=== PATIENT | female | born 1990 | race Caucasian/White ===

== ENCOUNTER → 2018-11-09 11:16 | Outpatient (CLI) | payer OTHER, SELFPAY ==
[2017-06-22 10:18] VITALS: BMI 25.6
[2018-11-09 16:35] LABS: Chlamydia Trachomatis by PCR Negative (Negative); Neisserai gonorrhoeae by PCR Negative (Negative); Probe Check PASS; Sample Adequacy Control PASS; Specimen Processing Control PASS
== END ==
PROVIDERS: Visit Provider Obstetrics & Gynecology
DX: Z11.3 Encounter for screening for infections with a predominantly sexual mode of transmission (principal)
CPT/HCPCS: 87491; 87591

== ENCOUNTER → 2018-11-24 10:58 | Outpatient (CLI) | payer OTHER, SELFPAY ==
[2018-11-24 14:28] LABS: Absolute Lymphocyte Count 0.99 X10^3/ul (0.83-4.51); Absolute Neutrophil Count 5.8 X10^3/uL (2.0-7.7); Basophil# 0.02 X10^3/uL; Basophil% 0.3 % (0-1); Eosinophil# 0.03 X10^3/uL; Eosinophils% 0.4 % (0-5); Hematocrit 39.1 % (37-47); Hemoglobin 13.2 g/dl (12.0-15.0); Lymphocyte # 0.99 X10^3/ul (4.0); Lymphocyte % 13.6 % (19-41); Mean Corp Hgb Conc 33.8 g/gl (32-36); Mean Corpuscular Hgb 30.1 pg (27.0-32.0); Mean Corpuscular Volume 89.3 fL (81-99); Mean Platelet Vol. 9.8 fl (6.2-12.0); Monocyte# 0.44 X10^3/uL; Monocyte% 6.1 % (0-10); Neutrophil # 5.78 X10^3/uL (2.7-7.7); Neutrophil % 79.5 % (47-70); POSITIVE COUNT NO; POSITIVE DIFFERENTIAL NO; POSITIVE MORPHOLOGY NO; Platelet Count 295 K/mm3 (150-450); RBC Distribution Width CV 13.9 % (11.6-14.6); RBC Distribution Width SD 44.2 fl (35.1-43.9); Red Blood Count 4.38 M/mm3 (4.2-5.4); White Blood Count 7.3 K/mm3 (4.4-11.0)
[2018-11-24 14:43] LABS: Thyroid Stim Hormone (TSH) 1.24 uIU/mL (0.358-3.74)
[2018-11-24 15:22] LABS: HIV - WCH Non-Reactive (Nonreactive); Rubella IgG 238.5 IU/mL
[2018-11-24 15:55] LABS: Color, Urine Yellow (Yellow); Glucose, Dipstick Normal (Normal); Ketone-Dipstick Negative (Negative); Leukocyte Esterase-Dipstick Negative /ul (Negative); Nitrite-Dipstick Negative (Negative); Occult Blood-Urine Negative /ul (Negative); Protein-Dipstick Negative (Negative); Urine Bilirubin Dipstick Negative (Negative); Urine Clarity Clear (Clear); Urine Urobilinogen Normal (Normal); Urine pH 6.5 (5.0 - 8.0)
[2018-11-25 11:00] LABS: HEPATITIS B SURFACE AG Negative (Negative); Hep C Antibodies <0.1 s/co ratio (0.0-0.9)
[2018-11-26 01:31] LABS: Prenatal RPR NONREACTIVE (NONREACTIVE)
== END ==
PROVIDERS: Visit Provider Obstetrics & Gynecology
DX: Z34.81 Encounter for supervision of other normal pregnancy, first trimester (principal)
CPT/HCPCS: 36415; 81002; 84443; 85025; 86703; 86762; 86803; 87340

== ENCOUNTER → 2018-12-02 09:42 | Outpatient (CLI) | payer OTHER, SELFPAY ==
--- NOTE | 2018-12-02 09:51 | US_ITS ---
STUDY: ULTRASOUND BREAST - RIGHT REASON FOR EXAM: Female, 28 years old. Palpable lump in the right breast. TECHNIQUE: Axial and longitudinal images of the RIGHT breast were performed with a high resolution ultrasound transducer. COMPARISON: None. FINDINGS: RIGHT Breast: The lateral half of the right breast was examined by ultrasound. There is homogeneous fibroglandular tissue. No solid or cystic mass lesion is seen. US/Breast Limited Unilateral IMPRESSION: Unremarkable sonographic examination of the lateral aspect of the right breast. ASSESSMENT CATEGORY: BIRADS Category 1: Negative. A letter regarding these results will be sent to the patient by the facility within 30 days. Electronically Signed: Chato Liriano, at 13:01 EDT , Service support ,
== END ==
PROVIDERS: Referring Provider Obstetrics & Gynecology; Visit Provider Obstetrics & Gynecology
DX: N63.13 Unspecified lump in the right breast, lower outer quadrant (principal)
CPT/HCPCS: 76642

== ENCOUNTER → 2019-04-05 | Outpatient (CLI) | payer OTHER, SELFPAY ==
[2019-04-05 10:33] LABS: Hematocrit 30.9 % (37-47); Hemoglobin 10.4 g/dL (12.0-15.0); Mean Corp Hgb Conc 33.7 g/dL (32-36); Mean Corpuscular Hgb 32.3 pg (27.0-32.0); Mean Platelet Vol. 9.9 fl (6.2-12.0); Platelet Count 214 K/mm3 (150-450); RBC Distribution Width CV 14.1 % (11.6-14.6); Red Blood Count 3.22 M/mm3 (4.2-5.4); White Blood Count 6.9 K/mm3 (4.4-11.0)
[2019-04-05 10:55] LABS: Glucose Challenge Gest 1H 50g 69 mg/dL (70-140)
== END | disposition home or self-care (01) ==
PROVIDERS: Visit Provider Obstetrics & Gynecology
DX: Z34.83 Encounter for supervision of other normal pregnancy, third trimester (principal)
CPT/HCPCS: 36415; 82950; 85027; 86850

== ENCOUNTER → 2019-05-30 13:48 | Outpatient (CLI) | payer OTHER, SELFPAY | PROVIDERS: Visit Provider Obstetrics & Gynecology | DX: Z34.83 Encounter for supervision of other normal pregnancy, third trimester (principal); Z36.85 Encounter for antenatal screening for Streptococcus B | CPT/HCPCS: 87077; 87081; 87186 ==

== ENCOUNTER 2019-06-25 11:50 | Inpatient (IN) | payer OTHER, SELFPAY ==
[2019-06-25 12:09] VITALS: BMI 24.5
--- NOTE | 2019-06-25 12:19 | PCM.HPOB.BLA ---
- Problem List (1) 39 weeks gestation of Status: Acute History and Physical Date of Admission: 06/25/19 AC ANTEPARTUM RECORD - HISTORY AND PHYSICAL (06/25/2019) Name: ARIANE VERA OB Physician: BETO [place]'s Physician: Dr. Janel Perkins ...................................................................... : 1990 Age: 28 Address: [address] [place] [address] Phone: H) [phone] (O) [phone] Insurance Carrier: [facility] [id number] Emergency Contact: ALESSIA SARMAD [phone] ...................................................................... HPI: 28yo @ 39 6/7 wga with c/o painful contractions since this morning. Final SERENA: 06/26/19 By Ultrasound: 9 weeks 3 days PARITY: (G-Total Pregnancies P-Fullterm,Premature,Induced AB,Spont AB, Ectopics, Multiple,Living) SERENA CONFIRMATION: By LMP: 09/19/18 By First Ultrasound Exam: 06/24/19 Final SERENA: 06/26/19 OB PROBLEM LIST: ALLERGIC- penicillins and Septra. Call [facility] for delivery Family History of CF -Father's cousin's sons Father has aunts and cousins with Polycystic kidneys Father's first cousin has severe Autism MSAFP and CF testing declined O negative blood type RhoGAM at 28 wks ALLERGIES: Dicloxacillin Severe rash / no laryngeal edema Septra Reaction unknown--rec'd as a child MEDICATIONS: echinacea 400 mg capsule prn ferrous gluconate 324 mg (37.5 mg iron) tablet One pill by mouth once a day 28 mg-800 mcg tablet daily Probiotic 10 billion cell capsule daily Vitamin C 500 mg chewable tablet daily Vitamin D3 1,000 unit capsule daily SOCIAL HISTORY: Smoking - Never Alcohol Use - None Diet - moderate, balanced diet and caffeine < 2 drinks per day Lifestyle - Exercise - walking Employer - homemaker Job Description - Illicit Drug Use - denies use of street drugs Sexual Activity - Residence - lives w and children Place of - [place], [place] Spouse-Sig Other Name - Alessia Vera Spouse-Sig Other Occupation - [employer] Spouse-Sig Other Phone No - [phone] cell Children Name(s) - Ning (JW) , Abimael (DS), Mckenzie (EB), Bethany (EB) PRIOR DELIVERY HISTORY DEL DATE GEST LAB WT LB WT OZ TYPE ANES LABOR TX Sep 02 39 12 6 13 Vag Epidural No Mar 06 40 4 7 1 Vag None No Jul 07 40 6 7 2 Vag None No Sep 03 37 6 6 0 Vag Epidural No ANTEPARTUM FLOW CHART VISIT GE RTC FU F F OK U U DATE WK MD WKS HT PN HR M SS BP ED WT OK GL D EF ST __ ____ ___ __ __ ___ __ __ __ ___ __ __ __ ___ __ 30 Sep 39 ELB 1 35 V + + 88/50 0 140 - - 4+ 75 -2 23 Sep 38 ELB 1 34 V + + 102/70 0 140 - - 3 50 -1 16 Sep 37 ELB 1 34 V + + 120/70 sl 138 tr - 09 May 36 ELB 1 34 V + + 100/60 0 137 - - 2 50 -1 03 Sep 35 ELB 1 32 - + + 108/72 sl 137 tr - Apr ELB 2 30 - + + 110/54 0 136 tr - Apr 19 ELB 2 28 - + + 100/64 0 134 tr - Apr 17 ELB 2 27 - + + 110/72 0 134 tr - Mar 15 ELB 3 25 - + + 100/50 0 132 - - February 07 ELB 4 - V U+ + 90/60 0 130 tr - February 04 ELB 3 - - + ? 104/60 0 125 tr - Jan 01 ELB 4 - - + O 80/58 0 123 - - Nov 27 ELB 4 - - U+ O 94/60 0 122 - - ANTEPARTUM NOTE(S): Jun 20 2019: feeling well. Cervix check. Jun 13 2019: feeling well. Jun 06 2019: uncomfortable, reviewed, SROM, and labor May 30 2019: LARC consent signed- declined. GBS today. May 24 2019: Reviewed FM, SROM, and labor, GBS next week May 02 2019: doing well Apr 18 2019: see note Apr 05 2019: GCT today along with Rhogam Mar 14 2019: doing well, glucola inst. provided and reviewed Feb 07 2019: Comp u/s today Jan 19 2019: declines MSAFP Dec 20 2018: feeling well. Nov 24 2018: Intermittent nausea. US, NOB, PNV. COMPREHENSIVE ANTEPARTUM NOTE(S): Jun 14 2019: Size less than dates, hx of smaller babies. SONO at 38 wks EGA: YANETH 9.6 cm EFW 40.2 % and 6lb 15oz lbs EB Jun 03 2019: H taken to OB. tkg Jun 02 2019: GBS POSITIVE EB May 30 2019: GBS today EB May 02 2019: EFW 84.3 pct at 20 wk sono. EFW 14oz lbs Watch growth... Some continued johnny schilling but nothing regular. EB Apr 18 2019: Ariane is here for visit. Reports some johnny schilling noted and feels this is earlier than with other pregnancies. Advised this may be normal with subsequent pregnancies. Call if progressive, bloody show, PROM. Reviewed rest breaks and increased po fluids as tolerated, Tylenol and maternity support belt may help also. FM reviewed. LMT Apr 05 2019: Glucola 69 Hgb 10.4 g/dl EB Dec 20 2018: Breast lump is gone. she was not able to even find it for the sono done. Reviewed NOB labs all WNL. RTO in 4 wk for PNV. 7-8 wk for 20 wk sono and PNV. Feeling well. EB Nov 26 2018: O NEG. RI. Hgb 13.2 g/dl. TSH wnl. Order sent through to [facility] for R breast sono ? 2-3 cm palpable cyst noted at NOB appt and appt following that. They will schedule. EB Nov 24 2018: Ariane is here for her NOB visit at 9 w 3 d, she is a A1 with an SERENA of 06/26/2019. US performed today, she will have labs drawn and see Dr. Bejarano for a PNV before leaving the office today. She is an established pt and is aware of office practice patterns and labs being collected today. , Alessia, accompanies her today; they have 4 children at home. Past history updated. Delivery at [facility] is planned without an epidural, and she will breastfeed. Ariane is a life long non-smoker, and she denies use of drugs or ETOH. She takes an OTC vitamin with DHA. Genetic Screening form completed, her has several relatives on his mother's side with Polycystic Kidneys, and a cousin with severe Autism. MSAFP and CF testing declined, consent signed as such. Emergencies/danger signs to report, round ligament pain, reporting s/s of a UTI, and common OTC medications approved/not approved for use during reviewed. Ariane states intermittent nausea without emesis. Reviewed measures that may help minimize nausea, including small frequent meals with protein included throughout the day, adequate water hydration of at least one gallon a day,Vitamin B6 50 mg twice a day, and Unisom at bedtime. Ariane states that she eats a generally well balanced diet, and drinks water or milk. Reviewed caloric needs, recommended weight gain, limiting empty calories, and limiting caffeine to one cup a day. Food safety during reviewed. Exercise recommendation during reviewed, along with lifting restrictions, and Kegel exercises. Ariane states that she understands all information provided during NOB visit, and she has no questions following same. To [facility] draw station for labs. AW New Nov 09 2018: Here for appt to confirm . Pap next in November 2019. Cervical cultures to be collected. EB Nov 09 2018: Ariane is here for missed menses appt. She relates LMP of 09/19, +UPT today in office, approx EDC 06/25/19. She is having mild nausea and fatigue. Declines medication at this time. Relates had early SAB in June, + UPT then started bleeding a day later and then regular menses until missed period in September. She is taking several supplements as in chart and ok to continue these. She is not due for pap this year and will have culture today. Educational materials are provided and reviewed. Encouraged increased po fluids, adding approx 300+ calories per day, exercise like walking as able. LMT Nov 09 2018: Cervical cultures NEG. EB REVIEW OF SYSTEMS: GENERAL - Denies fever, or chills SKIN - Denies rash, new skin lesions, or change in moles EYES - Denies blurred vision, or change in visual acuity EARS - Denies ear pain, or difficulty hearing NOSE - Denies nasal congestion, discharge, or bleeding MOUTH - Denies sore throat, or difficulty swallowing NECK - Denies pain or swelling RESPIRATORY - Denies shortness of breath, cough, wheezing CARDIOVASCULAR - Denies palpitations, chest pain, orthopnea, PND, peripheral edema, syncope or claudication GASTROINTESTINAL - Denies nausea, vomiting, diarrhea, constipation, Denies abdominal pain, melena and or bright red blood GENITOURINARY - Denies dysuria, frequency of urination, urgency, or hesitancy MUSCULOSKELETAL - Denies joint or muscle pain, or back pain NEUROLOGICAL - Denies localized numbness, weakness, or tingling PSYCHIATRIC - Denies depression, anxiety, substance abuse or suicide attempts ENDOCRINE - Denies heat or cold intolerance, weight loss or gain, increasing thirst HEMATO-IMMUNOLOGIC - Denies easy bruising, bleeding, oral ulcerations or recurrent infections GENETICS SCREENING: Age 35+ years: No Thalassemia: No Neural Tube Defect: No Down Syndrome: No SONJA-SACHS: No Sickle Cell Disease: No Hemophilia: No Musc. Dystrophy: No Cystic Fibrosis: No [place] Chorea: No Mental Retardation: No Fragile X: No Other genetic: No Other defects: No SABs/still births: No Drugs since LMP: No Comments: Cousins/aunts polycystic kidneys INFECTION HISTORY: High risk AIDS: No High risk Hepatitis: No Exposed to TB: No Exposed to Herpes: No Rash/viral illness since LMP: No History of STD: No MENSTRUAL HISTORY: *Menses Amount/Duration: 5Menses Regularity: RegularFrequency: monthlyMenarche (Age Onset): 12* PAST SUMMARY: PARITY: 1. Total Pregnancies............ 6 2. Full Term Pregnancies........ 4 3. Premature.................... 0 4. Abortions - Induced.......... 0 5. Abortions - Spontaneous...... 1 6. Ectopics..................... 0 7. Multiple Births.............. 0 8. Living Children.............. 4 PAST #1: Date of :.................. 08/21/13 Gestation Weeks:................ 39 Length of labor(hours):......... 12 Sex:............................ F Weight-lbs:............... 6 Weight-oz:................ 13 Type of Delivery:............... Vag Type of Anesthesia:............. Epidural Place of Delivery:.............. [place] Treatment of Labor?:.... No Comment: NONE PAST #2: Date of :.................. 09/09/14 Gestation Weeks:................ 37 Length of labor(hours):......... 6 Sex:............................ M Weight-lbs:............... 6 Weight-oz:................ 0 Type of Delivery:............... Vag Type of Anesthesia:............. Epidural Place of Delivery:.............. [place] Treatment of Labor?:.... No Comment: IND PAST #3: Date of :.................. 02/20/16 Gestation Weeks:................ 40 Length of labor(hours):......... 4 Sex:............................ F Weight-lbs:............... 7 Weight-oz:................ 1 Type of Delivery:............... Vag Type of Anesthesia:............. None Place of Delivery:.............. [place] Treatment of Labor?:.... No Comment: NONE PAST #4: Date of :.................. 06/22/17 Gestation Weeks:................ 40 Length of labor(hours):......... 6 Sex:............................ F Weight-lbs:............... 7 Weight-oz:................ 2 Type of Delivery:............... Vag Type of Anesthesia:............. None Place of Delivery:.............. [place] Treatment of Labor?:.... No Comment: IOL, GBS+ Mom's Problem List Problem Status Onset Code 39 weeks gestation of Acute Z3A.39 Course Did the patient receive Yes care? Labs Blood Type: O RH: NEGATIVE RPR/VDRL/Syphilis Nonreactive Rubella status Immune HbSAg Negative Date Done: 11/24/18 Chlamydia Negative Gonorrhea Negative HIV/AIDS Non-Reactive Group B Strep: Positive Current Obstetrical History Gestational Diabetes No Incompetent Cervix No Infertility No IUGR No Macrosomia No Hypertension/Pre-eclampsia No Placenta Previa/Abruption No PTL/PROM No Uterine anomaly No Oligohydramnios No Polyhydramnios No Multiple gestation No Past Medical History Asthma No Diabetes No Hypertension No Heart disease No Mitral valve prolapse No Neurologic/Seizure disorder/ No Migraines Kidney disease No Liver disease No Varicosities No Clotting disorders/Hx of DVT No Thyroid Dysfunction No Other medical diseases No Psychiatric disorders No Major trauma No Abnormal PAP smear No Sleep apnea No Mammogram in the last 2 years No Social History Marital Status: Alleged father Alessia Hx Smoking No Smoking Status Never smoker PHYSICICAL EXAM AVSS GEN - nad , breathes through contractions CV - RRR PULM- CTAB ABD - soft, gravid, NT SVE 6/100/-1 per RN exam FHR 150, moderate variability, + accelerations, no decelertions TOCO 3/10 min Labs & Testing WBC 7.0 K/mm3 (4.4-11.0) 06/25/19 12:35 RBC 3.77 M/mm3 (4.2-5.4) L 06/25/19 12:35 Hgb 11.9 g/dL (12.0-15.0) L 06/25/19 12:35 Hct 35.2 % (37-47) L 06/25/19 12:35 MCV 93.4 fL (81-99) 06/25/19 12:35 MCH 31.6 pg (27.0-32.0) 06/25/19 12:35 MCHC 33.8 g/dL (32-36) 06/25/19 12:35 RDW Std Deviation 44.4 fl (35.1-43.9) H 06/25/19 12:35 RDW Coeff of Yoana 13.2 % (11.6-14.6) 06/25/19 12:35 Plt Count 197 K/mm3 (150-450) 06/25/19 12:35 MPV 9.8 fl (6.2-12.0) 06/25/19 12:35 Immature Gran % (Auto) 0.600 % (0.0-0.9) 06/25/19 12:35 Neut % (Auto) 70.6 % (47-70) H 06/25/19 12:35 Lymph % (Auto) 22.4 % (19-41) 06/25/19 12:35 [place] % (Auto) 5.7 % (0-10) 06/25/19 12:35 Eos % (Auto) 0.1 % (0-5) 06/25/19 12:35 Baso % (Auto) 0.6 % (0-1) 06/25/19 12:35 Absolute Neuts (auto) 5.0 X10^3/uL (2.0-7.7) 06/25/19 12:35 Absolute Lymphs (auto) 1.58 X10^3/uL (0.83-4.51) 06/25/19 12:35 Nucleated RBC % 0 % (0-5) 06/25/19 12:35 A/P: 28yo @ 39 6/7wga with active labor, Cat I FHR -GBS positive, penallergic - Rx Clindamycin -Expectant management -Consents reviewed
[2019-06-25] MEDS: Lactated Ringers 1,000 ML 50 ML IV (12:35)
[2019-06-25 12:51] LABS: Absolute Lymphocyte Count 1.58 X10^3/uL (0.83-4.51); Basophil# 0.04 X10^3/uL; Basophil% 0.6 % (0-1); Eosinophil# 0.01 X10^3/uL; Eosinophils% 0.1 % (0-5); Hematocrit 35.2 % (37-47); Hemoglobin 11.9 g/dL (12.0-15.0); Lymphocyte # 1.58 X10^3/ul (4.0); Lymphocyte % 22.4 % (19-41); Mean Corp Hgb Conc 33.8 g/dL (32-36); Mean Corpuscular Hgb 31.6 pg (27.0-32.0); Mean Corpuscular Volume 93.4 fL (81-99); Mean Platelet Vol. 9.8 fl (6.2-12.0); Monocyte% 5.7 % (0-10); NRBC Flagged by Analyzer 0 % (0-5); Neutrophil # 4.97 X10^3/uL (2.7-7.7); Neutrophil % 70.6 % (47-70); Platelet Count 197 K/mm3 (150-450); RBC Distribution Width CV 13.2 % (11.6-14.6); RBC Distribution Width SD 44.4 fl (35.1-43.9); Red Blood Count 3.77 M/mm3 (4.2-5.4)
--- NOTE | 2019-06-25 14:37 | PCM.PN.BLA ---
Progress Note LABOR PROGRESS NOTE Contractions intensity. Requests ROM. AVSS GEN - NAD< AAO x 3 FHR 145, moderate variability, + accelerations, no decelerations TOCO 3/10 min SVE 7.5/90/0 station following ROM, cephalic A/P: 28yo @ 39 6/7wga in active labor, Cat I FHR -r/b amniotomy reviewed for mother and fetus. Following discussion, pt opts for amniotomy. -meconium stained fluid -Anticipate
[2019-06-25] MEDS: Oxytocin 30 units/NS 500 ml 30 UNITS/500 ML IV.SOLN 334 UNITS IV (14:55)
--- NOTE | 2019-06-25 15:19 | PCM.OPRPT ---
Problem List (1) 39 weeks gestation of Status: Acute Report of Operation Date of Procedure: 06/25/19 Pre-Operative Diagnosis: 39 6/7 wga, labor, GBS positive Post-Operative Diagnosis: 39 6/7wga, labor, GBS positive Surgery/Procedure Performed:: Description of Surgical Findings:: Placenta grossly normal Vaginal Delivery Maternal Presentation: Active Labor Method of Induction: Amniotomy, - - augmentation Amniotic Membrane Rupture Type: Artificial Rupture of Membrane time: 1432h 06/25/19 Amniotic Fluid Description: Lightly stained meconium Final SERENA: 06/26/19 Final SERENA Source: US <20 weeks Gestational age: 39 Weeks and 6 Days doctor who attended delivery (if requested by OB): Trinh Mrar Date of Procedure: 06/25/19 Surgery/ Procedure Performed: Spontaneous Vaginal Delivery Type of Anesthesia: Epidural Description of Procedure: Patient was FD/+3 on my arrival. She pushed to deliver a vigorous female infant in direct OA over and intact perineum. The was placed on the maternal abdomen and further attended by nursery personnel. The cord was doubly clamped and cut. Cord blood was obtained. The placenta delivered spontaneously and appeared intact on inspection. Sponge counts were correct x 2. Presentation: Vertex Placental Delivery Description: Spontaneous Placenta Disposition: [facility] Cord Vessel Description: 3 Vessels Nuchal Cord Compression: Without compression Cord Entanglement: None Estimated Blood Loss: 100 ml Infant A gender: Female (1 minute): 9 (5 minute): 10 Episiotomy Description: None Laceration: None Medications given after delivery: IV Pitocin Complications: None
--- NOTE | 2019-06-25 15:33 | DCINST_ITS ---
Discharge Diet: No Restrictions Discharge Activity: Return to Normal Activity May resume sexual activity in: 6 weeks Additional Instructions: If you experience any of the following, contact your healthcare provider. * Bleeding that soaks a pad every hour for 2 hours * Fever 100.4 or higher * Unrelieved incision or abdominal pain * Swelling, redness, discharge or bleeding from your incision or episiotomy site * Your incision begins to separate * Problems urinating (including inability to urinate or burning while urinating). * Visual changes * Severe headache * Flu-like symptoms * Pain or redness in one of both of your breasts * Pain, warmth, tenderness or swelling in your legs, especially the calf area * Frequent nausea and vomiting * Symptoms of depression or anxiety If you experience any of the following, call 911 or go to the nearest Emergency Room. * Chest pain * Problems breathing * Seizure activity * Partial or complete paralysis of a body part, slurred speech, weakness or drooping of the face, or a sudden inability to walk or hold your balance Allergies/Adverse Reactions: Allergies penicillin G Allergy (Verified 06/25/19 12:10) Hives sulfamethoxazole [From Mayra] Allergy (Verified 06/25/19 12:10) Hives trimethoprim [From Mayra] Allergy (Verified 06/25/19 12:10) Hives Medications to take at Discharge Vits [Prenatabs FA ] 1 tab PO DAILY 06/25/19 Please Follow Up With: Gladys Bejarano MD When: 6 weeks Primary Care Physician: Care Physician,No Primary [Primary Care Provider] - Test Results: Test results from this visit will be discussed in further detail at your follow- up appointment, if applicable.
--- NOTE | 2019-06-25 15:33 | PCM.DCVAG ---
Discharge Diet: No Restrictions Discharge Activity: Return to Normal Activity May resume sexual activity in: 6 weeks Additional Instructions: If you experience any of the following, contact your healthcare provider. Bleeding that soaks a pad every hour for 2 hours Fever 100.4 or higher Unrelieved incision or abdominal pain Swelling, redness, discharge or bleeding from your incision or episiotomy site Your incision begins to separate Problems urinating (including inability to urinate or burning while urinating). Visual changes Severe headache Flu-like symptoms Pain or redness in one of both of your breasts Pain, warmth, tenderness or swelling in your legs, especially the calf area Frequent nausea and vomiting Symptoms of depression or anxiety If you experience any of the following, call 911 or go to the nearest Emergency Room. Chest pain Problems breathing Seizure activity Partial or complete paralysis of a body part, slurred speech, weakness or drooping of the face, or a sudden inability to walk or hold your balance Allergies/Adverse Reactions: Allergies penicillin G Allergy (Verified 06/25/19 12:10) Hives sulfamethoxazole [From ] Allergy (Verified 06/25/19 12:10) Hives trimethoprim [From ] Allergy (Verified 06/25/19 12:10) Hives Medications to take at Discharge Vits [Prenatabs FA ] 1 tab PO DAILY 06/25/19 Please Follow Up With: Gladys Bejarano MD When: 6 weeks Primary Care Physician: Care Physician,No Primary [Primary Care Provider] - Test Results: Test results from this visit will be discussed in further detail at your follow-up appointment, if applicable.
[2019-06-25 18:05] VITALS: BP 100/64; PULSE 74; RESP 16; TEMP 36.7; O2SAT 98
[2019-06-25 20:05] VITALS: BP 104/66; PULSE 66; RESP 16; TEMP 36.9
--- NOTE | 2019-06-25 20:21 | NURSING ---
pt moved to room 7 at this time, denies needs
[2019-06-26 00:05] VITALS: BP 100/55; PULSE 68; RESP 16; TEMP 36.9
--- NOTE | 2019-06-26 01:37 | NURSING ---
pt called RN to bedside to evaluate clot in toilet. appeared to be about the size of 50 cent piece. fundal check firm at U with scant bleeding.
[2019-06-26] MEDS: Naproxen 250 MG Tablet 500 MG PO ×2 (04:01→15:16)
[2019-06-26 04:03] VITALS: BP 100/48; PULSE 77; RESP 16; TEMP 36.4
[2019-06-26 08:38] VITALS: BP 84/54; PULSE 54; RESP 16; TEMP 36.7; O2SAT 99
--- NOTE | 2019-06-26 09:56 | PCM.PN.OB ---
Patient Problems: Active and Suspected Problems 39 weeks gestation of (Acute) Subjective: No issues overnight. Doing well. OOB, voiding without difficulty. Denies heavy lochia. nursing well. Objective: AVSS - Physical Exam General: Alert, Oriented x3, Cooperative, No apparent distress HEENT: Atraumatic, Normocephalic Lungs: Clear to auscultation, Normal air movement Cardiovascular: Regular rate, Regular Rhythm, Normal S1, Normal S2 Abdomen: Soft, Non Tender, Non-Distended Extremities: No edema, No Calf Tenderness Neurological: Neuro grossly intact Psych/Mental Status: Normal Affect, Appropriate, Alert and oriented to time, place, person, mood and affect Vital Signs Temp Pulse Resp BP Pulse Ox 98.1 F 54 L 16 84/54 L 99 06/26/19 08:38 06/26/19 08:38 06/26/19 08:38 06/26/19 08:38 06/26/19 08:38 Oxygen Delivery Method Room Air Weight: 62.868 kg Body Mass Index (BMI) 24.5 Intake and Output for Last 24 Hours 06/24/19 06/25/19 06/26/19 23:59 23:59 23:59 Intake Total 726 / 726 Output Total 850 / 850 Balance -124 / -124 Laboratory Tests Past 24 Hrs 06/25/19 06/25/19 12:35 12:35 WBC 7.0 RBC 3.77 L Hgb 11.9 L Hct 35.2 L MCV 93.4 MCH 31.6 MCHC 33.8 RDW Std Deviation 44.4 H RDW Coeff of Yoana 13.2 Plt Count 197 MPV 9.8 Immature Gran % (Auto) 0.600 Neut % (Auto) 70.6 H Lymph % (Auto) 22.4 [place] % (Auto) 5.7 Eos % (Auto) 0.1 Baso % (Auto) 0.6 Absolute Neuts (auto) 5.0 Absolute Lymphs (auto) 1.58 Nucleated RBC % 0 Blood Type O NEGATIVE Antibody Screen NEGATIVE Medical Necessity - Tobacco Use Smoking Status: Never smoker Assessment/Plan All Active Problems 39 weeks gestation of (Acute) 28yo PPD#1 s/p doing well. - Rh negative, A negative - Rubella immune - Routine care
[2019-06-26 11:56] VITALS: BP 98/52; PULSE 57; TEMP 36.8
[2019-06-26] MEDS: Prenatal Vits Tablet 1 TABLET PO (11:58)
[2019-06-26 15:17] VITALS: BP 90/51; PULSE 57; RESP 16; TEMP 36.7
[2019-06-26 19:30] VITALS: BP 93/59; PULSE 60; RESP 16; TEMP 36.8; O2SAT 98
[2019-06-27 01:47] VITALS: BP 89/55; PULSE 63; RESP 16; TEMP 36.7; O2SAT 97
--- NOTE | 2019-06-27 07:44 | PCM.PN.OB ---
Patient Problems: Active and Suspected Problems 39 weeks gestation of (Acute) Subjective: PPD#2 GBS positive. - Physical Exam General: Alert, Oriented x3, Cooperative, No apparent distress HEENT: Atraumatic, EOMI Neck: Supple Neurological: Cranial nerves II-XII grossly intact Psych/Mental Status: Normal Affect Vital Signs Temp Pulse Resp BP Pulse Ox 98.1 F 63 16 89/55 L 97 06/27/19 01:47 06/27/19 01:47 06/27/19 01:47 06/27/19 01:47 06/27/19 01:47 Oxygen Delivery Method Room Air Weight: 62.868 kg Body Mass Index (BMI) 24.5 Intake and Output for Last 24 Hours 06/25/19 06/26/19 06/27/19 23:59 23:59 23:59 Intake Total 726 / 726 Output Total 850 / 850 Balance -124 / -124 Medical Necessity - Tobacco Use Smoking Status: Never smoker Assessment/Plan All Active Problems 39 weeks gestation of (Acute) PPD#2 GBS positive. Stable pp. Second day stay d/t GBS positive and inadequate time for abx prophylaxis. Dischg home today. RTO In 6 wk for pp check, prn sooner.
[2019-06-27 09:00] VITALS: BP 95/65; PULSE 65; RESP 20; TEMP 36.9; O2SAT 98
[2019-06-27] MEDS: Prenatal Vits Tablet 1 TABLET PO (10:08)
== END 2019-06-27 10:45 | disposition home or self-care (01) | DRG 807 ==
PROVIDERS: Admitting Provider Obstetrics & Gynecology; Referring Provider Obstetrics & Gynecology; Visit Provider Obstetrics & Gynecology
DX: O77.0 Labor and delivery complicated by meconium in amniotic fluid (principal); Z37.0 Single live birth; Z3A.39 39 weeks gestation of pregnancy; O99.824 Streptococcus B carrier state complicating childbirth
CPT/HCPCS: 59025; 59050; 85025; 86850; 86900; 86901; 99218; J7120; G0378

== ENCOUNTER → 2020-04-16 | Outpatient (CLI) | payer OTHER, SELFPAY ==
[2020-04-16 19:14] LABS: Chlamydia Trachomatis by PCR Negative (Negative); Neisserai gonorrhoeae by PCR Negative (Negative); Probe Check PASS; Sample Adequacy Control PASS; Specimen Processing Control PASS
[2020-04-21 07:47] LABS: HPV Reflexed? NOT INDICATED
== END | disposition home or self-care (01) ==
LOC: LABSPEC 16:13
PROVIDERS: Visit Provider Obstetrics & Gynecology
DX: Z12.4 Encounter for screening for malignant neoplasm of cervix (principal); Z11.3 Encounter for screening for infections with a predominantly sexual mode of transmission
CPT/HCPCS: 87491; 87591; 88175; G0145

== ENCOUNTER → 2020-05-21 16:31 | Outpatient (CLI) | payer OTHER, SELFPAY ==
[2020-05-21 17:28] LABS: Absolute Lymphocyte Count 1.58 X10^3/uL (0.83-4.51); Basophil# 0.02 X10^3/uL; Basophil% 0.3 % (0-1); Eosinophil# 0.03 X10^3/uL; Eosinophils% 0.5 % (0-5); Hemoglobin 11.9 g/dL (12.0-15.0); Lymphocyte # 1.58 X10^3/ul (4.0); Lymphocyte % 26.6 % (19-41); Mean Corpuscular Hgb 30.8 pg (27.0-32.0); Mean Corpuscular Volume 88.1 fL (81-99); Mean Platelet Vol. 9.7 fl (6.2-12.0); Monocyte# 0.29 X10^3/uL; Monocyte% 4.9 % (0-10); NRBC Flagged by Analyzer 0 % (0-5); Neutrophil % 67.5 % (47-70); Platelet Count 257 K/mm3 (150-450); RBC Distribution Width CV 13.6 % (11.6-14.6); RBC Distribution Width SD 43.5 fl (35.1-43.9); Red Blood Count 3.86 M/mm3 (4.2-5.4); White Blood Count 5.9 K/mm3 (4.4-11.0)
[2020-05-21 18:47] LABS: HIV - WCH Non-Reactive (Nonreactive); Hepatitis B Surface Antigen Non-Reactive (Nonreactive); Hepatitis C Antibody Non-Reactive (Nonreactive); Rubella IgG 195.1 IU/mL
[2020-05-23 17:26] LABS: V-Zoster IgG (Immunity) 1581 index (Immune >165); V-Zoster Virus Acute IgM < 0.91 index (0.00-0.90)
[2020-05-24 06:28] LABS: Prenatal RPR NONREACTIVE (NONREACTIVE)
== END ==
PROVIDERS: Visit Provider Student in an Organized Health Care Education/Training Program
DX: Z34.91 Encounter for supervision of normal pregnancy, unspecified, first trimester (principal)
CPT/HCPCS: 36415; 81002; 85025; 86703; 86762; 86787; 86803; 87340

== ENCOUNTER → 2020-08-13 10:35 | Outpatient (CLI) | payer OTHER, SELFPAY ==
[2020-08-13 13:28] LABS: Hemoglobin 11.1 g/dL (12.0-15.0); Mean Corp Hgb Conc 33.6 g/dL (32-36); Mean Corpuscular Hgb 32.4 pg (27.0-32.0); Mean Corpuscular Volume 96.2 fL (81-99); Mean Platelet Vol. 9.6 fl (6.2-12.0); Platelet Count 258 K/mm3 (150-450); RBC Distribution Width CV 14.1 % (11.6-14.6); RBC Distribution Width SD 49.4 fl (35.1-43.9); Red Blood Count 3.43 M/mm3 (4.2-5.4); White Blood Count 6.2 K/mm3 (4.4-11.0)
[2020-08-13 13:44] LABS: Glucose Challenge Gest 1H 50g 90 mg/dL (70-140)
[2020-08-13 14:20] LABS: HIV - WCH Non-Reactive (Nonreactive); Hepatitis B Surface Antigen Non-Reactive (Nonreactive); Rubella IgG Reactive (Nonreactive)
== END ==
PROVIDERS: Visit Provider Student in an Organized Health Care Education/Training Program
DX: Z34.82 Encounter for supervision of other normal pregnancy, second trimester (principal)
CPT/HCPCS: 36415; 82950; 85027; 86703; 86762; 86850; 87340

== ENCOUNTER → 2020-09-11 15:43 | Outpatient (CLI) | payer OTHER, SELFPAY | PROVIDERS: Visit Provider Obstetrics & Gynecology | DX: Z34.83 Encounter for supervision of other normal pregnancy, third trimester (principal) | CPT/HCPCS: 36415; 86850 ==

== ENCOUNTER → 2020-11-09 | Outpatient (CLI) | payer OTHER, SELFPAY | END | disposition home or self-care (01) | LOC: LABSPEC 15:47 | PROVIDERS: Visit Provider Student in an Organized Health Care Education/Training Program | DX: Z36.85 Encounter for antenatal screening for Streptococcus B (principal) | CPT/HCPCS: 87077; 87081; 87186 ==

== ENCOUNTER 2020-11-29 14:35 | Inpatient (IN) | payer OTHER, SELFPAY ==
[2020-11-29] VITALS (25 sets, daily range): BP systolic 96–143; BP diastolic 54–80; PULSE 77–190; TEMP 36.7–37.3; O2SAT 82–100; BMI 26.3
[2020-11-29] MEDS: Lactated Ringers 1,000 ML 50 ML IV (15:00)
--- NOTE | 2020-11-29 15:08 | PCM.HPOB.BLA ---
History and Physical Date of Admission: 11/29/20 HPI: 30 yo at 39/5w, SERENA 12/01/20 by LMP, admitted for labor. Denies LOF, VB. +FM. This is complicated by: grandmultiparity Obstetrical History G1: 2013 G2: 2013 G3: 2016 G4: 2017 G5: SAB 2018 G6: 2019 G7: current Past Medical History Denies Medications PNV Past Surgical History [place] teeth extraction Social History Tobacco use:denies Alcohol use: denies Illicit drug use: denies Labs Blood type: O neg Rubella: immune Varicella: immunes Hep B/C: neg HIV: neg RPR: nonreactive GBS: pos Allergies NKDA Review of Systems General: alert and oriented HEENT: _denies change of vision Heart/lungs: _denies CP, SOB GI: _denies nausea, vomiting, dysuria, diarrhea MSK: _denies calf pain, tenderness Physical Exam Vital Signs Temp Pulse BP 11/29/20 14:15 98 104/66 11/29/20 14:10 99.1 F 11/29/20 13:48 110 H 113/80 General: a&o x3, NAD HEENT: normocephalic, atraumatic Cardio: no JVD Resp: no increased work in breathing Abdomen: soft, gravid, nontender Extremities: _minimal-moderate edema CE: 4-5 cm per RN FHT: 145/ mod yoana/+accel/no decel [place]: irregular Labs Laboratory Results - last 24 hr 11/29/20 15:00 WBC 9.3 RBC 3.42 L Hgb 10.3 L Hct 31.0 L MCV 90.6 MCH 30.1 MCHC 33.2 RDW Std Deviation 42.5 RDW Coeff of Yoana 12.9 Plt Count 209 MPV 10.4 Immature Gran % (Auto) 0.500 Neut % (Auto) 79.7 H Lymph % (Auto) 14.5 L [place] % (Auto) 4.9 Eos % (Auto) 0.2 Baso % (Auto) 0.2 Absolute Neuts (auto) 7.4 Absolute Lymphs (auto) 1.35 Nucleated RBC % 0 Assessment & Plan 30 yo at 39/5w, SERENA 3/13/21 by LMP, admitted for labor. complicated by grandmultiparity, GBS pos. Admit to L&D - _Routine labor orders - GBS pos - CEFM - Anesthesia to see
[2020-11-29 15:28] LABS: Absolute Lymphocyte Count 1.35 X10^3/uL (0.83-4.51); Absolute Neutrophil Count 7.4 X10^3/uL (2.0-7.7); Basophil# 0.02 X10^3/uL; Basophil% 0.2 % (0-1); Eosinophil# 0.02 X10^3/uL; Eosinophils% 0.2 % (0-5); Hemoglobin 10.3 g/dL (12.0-15.0); Lymphocyte # 1.35 X10^3/ul (4.0); Lymphocyte % 14.5 % (19-41); Mean Corp Hgb Conc 33.2 g/dL (32-36); Mean Corpuscular Hgb 30.1 pg (27.0-32.0); Mean Corpuscular Volume 90.6 fL (81-99); Mean Platelet Vol. 10.4 fl (6.2-12.0); Monocyte# 0.46 X10^3/uL; Monocyte% 4.9 % (0-10); NRBC Flagged by Analyzer 0 % (0-5); Neutrophil # 7.43 X10^3/uL (2.7-7.7); Neutrophil % 79.7 % (47-70); Platelet Count 209 K/mm3 (150-450); RBC Distribution Width CV 12.9 % (11.6-14.6); RBC Distribution Width SD 42.5 fl (35.1-43.9); Red Blood Count 3.42 M/mm3 (4.2-5.4); White Blood Count 9.3 K/mm3 (4.4-11.0)
--- NOTE | 2020-11-29 19:35 | PCM.PN.OB ---
Subjective: Comfortable between contractions - Physical Exam Vitals/I&O's: Vital Signs Temp Pulse BP Pulse Ox 98.1 F 86 106/64 99 11/29/20 19:19 11/29/20 19:19 11/29/20 19:19 11/29/20 18:48 Weight: 148 lb 12.992 oz Body Mass Index (BMI) 26.3 Intake and Output for Last 24 Hours 11/27/20 11/28/20 11/29/20 23:59 23:59 23:59 Intake Total 275 / 275 Balance 275 / 275 General: Alert, Oriented x3, Cooperative HEENT: Atraumatic, Normocephalic Oral: Moist Mucosa Neck: Supple Abdomen: Soft, Non Tender Extremities: No clubbing, No cyanosis, No edema Neurological: Neuro grossly intact Psych/Mental Status: Normal Affect, Appropriate, Alert and oriented to time, place, person, mood and affect Microbiology Past 72 Hours 11/29/20 15:05 Mucosa - Nose SARS-CoV-2 Antigen (Rapid) - Final Laboratory Results 11/29/20 15:00: WBC 9.3, RBC 3.42 L, Hgb 10.3 L, Hct 31.0 L, MCV 90.6, MCH 30.1, MCHC 33.2, RDW Std Deviation 42.5, RDW Coeff of Yoana 12.9, Plt Count 209, MPV 10.4, Immature Gran % (Auto) 0.500, Neut % (Auto) 79.7 H, Lymph % (Auto) 14.5 L, [place] % (Auto) 4.9, Eos % (Auto) 0.2, Baso % (Auto) 0.2, Absolute Neuts (auto) 7.4, Absolute Lymphs (auto) 1.35, Nucleated RBC % 0 11/29/20 15:00: Blood Type O NEGATIVE, Antibody Screen NEGATIVE Current Medications Acetaminophen (Acetaminophen 500 Mg Tablet) 500 - 1,000 mg PO Q6H PRN PRN PRN Reason: Pain Score 1-3 Al Hydroxide/Mg Hydroxide (Mag Hydrox/Al Hydrox/Simeth 30 Ml Udc) 15 - 30 ml PO Q4H PRN PRN PRN Reason: INDIGESTION Citric Acid/Sodium Citrate (Sodium Citrate/Citric Acid 30 Ml Udc) 30 ml PO X1 PRN PRN Reason: Section Fentanyl Citrate (Fentanyl 100 Mcg/2 Ml Ampul) 25 - 50 mcg IV Q2H PRN PRN PRN Reason: Pain Score 4-10 Lactated Ringer's () 500 mls @ 999 mls/hr IV .Q31M PRN PRN Reason: Epidural Lactated Ringer's () 500 mls @ 999 mls/hr IV .Q31M PRN PRN Reason: Corrective Measures Lactated Ringer's () 1,000 mls @ 50 mls/hr IV .Q20H [facility] Last Admin: 11/29/20 15:00 Dose: 50 mls/hr Documented by: Vancomycin HCl 1,250 mg/ (Sodium Chloride) 275 mls @ 167 mls/hr IV Q8H [facility] Last Infusion: 11/29/20 16:53 Dose: Infused Documented by: Ondansetron HCl (Ondansetron 4 Mg/2 Ml Vial) 4 mg IV Q4H PRN PRN PRN Reason: NAUSEA Prochlorperazine Edisylate (Prochlorperazine 10 Mg/2 Ml Vial) 10 mg IV Q6H PRN PRN PRN Reason: NAUSEA Sodium Chloride (0.9% Saline Lock 10 Ml Syringe) 10 - 40 ml IV X1 PRN PRN Reason: SALINE FLUSH Medical Necessity - Tobacco Use Smoking Status: Never smoker Assessment/Plan All Active Problems 39 weeks gestation of (Acute) Patient seen and examined. Cervical exam 4/60/-3. AROM clear fluid. heart rate tracing 140/moderate variability/positive accelerations/negative decelerations toco every 5 to 8 minutes. We will continue current management
[2020-11-29] MEDS: Lactated Ringers 500 ML 999 ML IV (20:52)
[2020-11-29] MEDS: Lactated Ringers 1,000 ML 200 ML IV (21:29)
[2020-11-29] MEDS: fentaNYL-bupivacaine (epidural) 100 ML BAG EPIDURAL (21:50)
[2020-11-30] VITALS (21 sets, daily range): BP systolic 88–113; BP diastolic 52–71; PULSE 59–134; RESP 16; TEMP 36.6–37.4
[2020-11-30] MEDS: Oxytocin 30 units/NS 500 ml 30 UNITS/500 ML IV.SOLN 334 UNITS IV (00:50)
--- NOTE | 2020-11-30 01:01 | PCM.OPRPT ---
Vaginal Delivery Date of Procedure: 11/30/20 Pre-Operative Diagnosis: Term, labor Post-Operative Diagnosis: Term, labor Type of Anesthesia: Epidural Description of Procedure: Normal spontaneous vaginal delivery of a viable male infant, vertex ELIJAH. Head and shoulders delivered with ease. Cord cut and clamped. Baby handed off to nursing. Placenta delivered via cord traction and fundal massage. No lacerations noted. EBL 250 cc Apgars 9/9
--- NOTE | 2020-11-30 01:02 | DCINST_ITS ---
<Marcos Hernandez - Last Filed: 11/30/20 01:02> Discharge Diet: No Restrictions Discharge Activity: Return to Normal Activity, May Drive, May Shower May resume sexual activity in: 4-6 weeks Weight Bearing Status: Weight bearing as tolerated Call your doctor if your incision/area has: Continuous Slow Oozing, Foul Smelling Discharge Call your doctor if you observe: Fever of 101 or Higher, Shortness of breath, Chest pain Additional Instructions: If you experience any of the following, contact your healthcare provider. * Bleeding that soaks a pad every hour for 2 hours * Fever 100.4 or higher * Unrelieved incision or abdominal pain * Swelling, redness, discharge or bleeding from your incision or episiotomy site * Your incision begins to separate * Problems urinating (including inability to urinate or burning while urinating). * Visual changes * Severe headache * Flu-like symptoms * Pain or redness in one of both of your breasts * Pain, warmth, tenderness or swelling in your legs, especially the calf area * Frequent nausea and vomiting * Symptoms of depression or anxiety If you experience any of the following, call 911 or go to the nearest Emergency Room. * Chest pain * Problems breathing * Seizure activity * Partial or complete paralysis of a body part, slurred speech, weakness or drooping of the face, or a sudden inability to walk or hold your balance Allergies/Adverse Reactions: Allergies penicillin G Allergy (Verified 11/29/20 14:19) Hives sulfamethoxazole [From Septra] Allergy (Verified 11/29/20 14:19) Hives trimethoprim [From Mayra] Allergy (Verified 11/29/20 14:19) Hives Medications to take at Discharge Vits [Prenatabs FA ] 1 tab PO DAILY 06/25/19 Please Follow Up With: Kajal Hernandez DO When: 4 to 6 weeks Primary Care Physician: Care Physician,No Primary [Primary Care Provider] - Test Results: Test results from this visit will be discussed in further detail at your follow- up appointment, if applicable. <Kajal Hernandez - Last Filed: 12/01/20 04:40> Additional Instructions: If you experience any of the following, contact your healthcare provider. * Bleeding that soaks a pad every hour for 2 hours * Fever 100.4 or higher * Unrelieved incision or abdominal pain * Swelling, redness, discharge or bleeding from your incision or episiotomy site * Your incision begins to separate * Problems urinating (including inability to urinate or burning while urinating). * Visual changes * Severe headache * Flu-like symptoms * Pain or redness in one of both of your breasts * Pain, warmth, tenderness or swelling in your legs, especially the calf area * Frequent nausea and vomiting * Symptoms of depression or anxiety If you experience any of the following, call 911 or go to the nearest Emergency Room. * Chest pain * Problems breathing * Seizure activity * Partial or complete paralysis of a body part, slurred speech, weakness or dr ooping of the face, or a sudden inability to walk or hold your balance Test Results: Test results from this visit will be discussed in further detail at your follow- up appointment, if applicable.
[2020-11-30] MEDS: Ibuprofen 600 MG Tablet PO (18:29)
[2020-12-01 00:29] VITALS: BP 103/57; PULSE 67
[2020-12-01 01:00] VITALS: BP 103/57; PULSE 67; RESP 16; TEMP 36.7
--- NOTE | 2020-12-01 04:39 | PCM.PN.OB ---
Subjective: PPD#1. Pt doing well. Lochia minimal. . Cramping minimal. - Physical Exam Vitals/I&O's: Vital Signs Temp Pulse Resp BP Pulse Ox 98.1 F 67 16 103/57 L 97 12/01/20 01:00 12/01/20 01:00 12/01/20 01:00 12/01/20 01:00 11/29/20 22:59 Oxygen Delivery Method Room Air Weight: 67.5 kg Body Mass Index (BMI) 26.3 Intake and Output for Last 24 Hours 11/29/20 11/30/20 12/01/20 23:59 23:59 23:59 Intake Total 2045.00 / 2045.00 762.08 / 762.08 Output Total 500 / 500 400 / 400 Balance 1545.00 / 1545.00 362.08 / 362.08 General: Alert, Oriented x3, No apparent distress HEENT: Atraumatic, Normocephalic Neck: Supple Lungs: Normal air movement Cardiovascular: Regular rate Abdomen: Soft - uterus 2 cm below umbilicus Extremities: No edema Neurological: Cranial nerves II-XII grossly intact Psych/Mental Status: Normal Affect, Appropriate Microbiology Past 72 Hours 11/29/20 15:05 Mucosa - Nose SARS-CoV-2 Antigen (Rapid) - Final Current Medications Acetaminophen (Acetaminophen 500 Mg Tablet) 1,000 mg PO Q8H PRN PRN PRN Reason: Pain Score 1-10 Bisacodyl (Bisacodyl 10 Mg Suppository) 10 mg RC UD PRN PRN Reason: If no BM Dibucaine (Dibucaine 30 Gm Tube) 1 applic TOPICAL TID PRN PRN; Protocol PRN Reason: Discomfort Hydrocortisone (Hydrocortisone 2.5% Crm) 1 applic TOPICAL TID PRN PRN; Protocol PRN Reason: Discomfort Ibuprofen (Ibuprofen 600 Mg Tablet) 600 mg PO Q6H PRN PRN PRN Reason: Pain Score 1-10 Last Admin: 11/30/20 18:29 Dose: 600 mg Documented by: Ondansetron HCl (Ondansetron 4 Mg/2 Ml Vial) 4 mg IV Q4H PRN PRN PRN Reason: Nausea Senna/Docusate Sodium (Senna/Docusate Sodium 1 Tablet) 1 - 2 tablet PO DAILY PRN PRN PRN Reason: Constipation Simethicone (Simethicone 80 Mg Tablet) 80 mg PO PCHS PRN PRN Reason: Indigestion/Stomach pain Sodium Chloride (0.9% Saline Lock 10 Ml Syringe) 5 - 15 ml IV UD PRN PRN Reason: SALINE FLUSH Medical Necessity - Tobacco Use Smoking Status: Never smoker Assessment/Plan All Active Problems 39 weeks gestation of (Acute) 30 yo PPD1 s/p . . Home today.
[2020-12-01 08:01] VITALS: BP 93/58; PULSE 67; RESP 16; TEMP 36.4
[2020-12-01 08:02] VITALS: BP 93/58; PULSE 67
== END 2020-12-01 11:15 | disposition home or self-care (01) | DRG 807 ==
LOC: WPOUT 14:43 → WP 14:43
PROVIDERS: Student in an Organized Health Care Education/Training Program; Admitting Provider Obstetrics & Gynecology; Visit Provider Obstetrics & Gynecology
DX: O98.82 Other maternal infectious and parasitic diseases complicating childbirth (principal); Z37.0 Single live birth; B95.1 Streptococcus, group B, as the cause of diseases classified elsewhere; Z3A.39 39 weeks gestation of pregnancy
CPT/HCPCS: 59025; 59050; 85025; 86850; 86900; 86901; 87426; 99218; J7050; J7120; G0378

== ENCOUNTER 2021-08-01 16:38 | Day surgery (SDC) | payer OTHER, SELFPAY ==
[2021-08-01] VITALS (12 sets, daily range): BP systolic 95–159; BP diastolic 58–91; PULSE 83–104; RESP 14–17; TEMP 36.2–36.6; O2SAT 96–100; BMI 22.8
--- NOTE | 2021-08-01 | POC_PTH ---
PATIENT: ARIANE BAÑUELOS LOC: [facility] U#:[id number] AGE/SX: 30/F ROOM: RE08/01/[address]: Dr. Marcos Hernandez MD : 1990 BED: DIS: 08/01/2021 SPEC #: [id number] RECD: 08/02/21 09:51 STATUS: EILEEN RERoselia #: [id number] FABIO: 08/01/21 00:[address]: Marcos Hernandez DEPT: SURGICAL PATHOLOGY RECD BY: Haroon Callejas ENTERED: 08/02/21 09:51 SP TYPE: PROD CONC OTHR DR: No Primary Care Phys Tissues: Product of conception, NOS Procedures: Surgery Specimen Level IV HEADER OPERATION: Suction dilation and curettage PRE-OP DIAGNOSIS: Spontaneous TISSUE SUBMITTED: Products of conception MICROSCOPIC DIAGNOSIS Endometrium, curettage: Chorionic villi, decidualized stroma and trophoblastic cells consistent with products of conception. AM:eden 08/05/2021 MICROSCOPIC DESCRIPTION Slides are reviewed. GROSS DESCRIPTION Received in fixative is one container labeled with the patient's name and designated products of conception. The specimen consists of multiple fragments of pink hemorrhagic soft tissue that in aggregate measure 4.5 x 4 x 1 cm. tissue is not identified. [employer] tissue is submitted in three cassettes. / SJ:eden 08/02/21 TC:5 CPT: 16012
--- NOTE | 2021-08-01 16:49 | US_ITS ---
We are attempting to reach an attending provider to discuss findings. An addendum with communication details will be sent when the communication is complete. STUDY: FIRST TRIMESTER OBSTETRICAL ULTRASOUND REASON FOR EXAM: Female, 30 years old. History, Signs T Symptoms and vaginal bleeding TECHNIQUE: Transvaginal US was obtained to better visualized the ovaries. TECHNICAL QUALITY: Adequate. PRIOR ULTRASOUND: None. FINDINGS: There is a gestational sac in the lower uterine segment. The mean sac diameter (MSD) measures 17 mm, indicating an estimated gestational age (EGA) of 6 weeks, 3 days. The gestational sac shape is irregular. There is a visualized yolk sac. The yolk sac measures 4.8 mm. The placenta is non-visualized. Due to early gestation, the placenta is not seen. There is visualization of an embryo with no cardiac activity, consistent with intrauterine demise. The crown-rump length (CRL) measures 3.3 mm, indicating an estimated gestational age (EGA) of 6 weeks, 1 days. The estimated gestation age (EGA) by LMP is 8 weeks, 0 days. The estimated date of delivery (SERENA) by LMP is 6.23.22. The estimated gestation age (EGA) by US is 6 weeks, 2 days. The estimated date of delivery (SERENA) by US is 7.5.22. The uterus measures 11.3 x 6.8 cm. There is no demonstrated uterine fibroid. The cervix is closed. The right ovary measures 3 x 2.2 cm. Cyst visualized measures 18 mm There is no visualized right adnexal mass or complex lesion. The left ovary measures 3.2 x 1.9 cm. There is no left ovarian cyst. There is no visualized left adnexal mass or complex lesion. There is no fluid in the cul de sac. US/Transvaginal w/Preg US IMPRESSION: demise. Electronically Signed: Alexander Stuart MD at 18:11 EST , Service support ,
--- NOTE | 2021-08-01 16:59 | ED.VIS.FEGU ---
HPI HPI - Female History of Present Illness Chief Complaint: Vag Bleeding Informant: patient Pain Pain: Positive for Pelvic Pain Onset: Today Current Severity: Moderate Maximum Severity: Moderate Bleeding Issue: Positive for Vaginal bleeding and Passing clots Onset: Today Timing: Continuous Current Severity: Heavy Maximum Severity: Heavy Associated Symptoms P: 6 Ab: 1 Narrative Narrative: 30-year-old female currently . Last menstrual period was around June 06. She is around 8 weeks . She had not had any care as of yet. In the past she saw Dr. Kajal Hernandez of [facility] [facility]. Patient is G8, P6 Ab1 with that occurring last year. She had normal vaginal delivery around November of this year. She is recently been doing well. Said early on in this she had some mild spotting. Yesterday she had mild spotting today had heavy vaginal bleeding with clots. Did not notice any obvious tissue. Prior similar symptoms: Yes Recent Illness/Hospitalization: No PFSH PFSH Medical History no medical history Home Medications vit,[id number] 1 tab PO DAILY 06/25/19 [History Last Taken 06/24/19 20:00] Allergy/AdvReac Type Severity Reaction Status Date / Time penicillin G Allergy Hives Verified 08/01/21 16:39 sulfamethoxazole Allergy Hives Verified 08/01/21 16:39 [From ] trimethoprim [From ] Allergy Hives Verified 08/01/21 16:39 Surgical History no surgical history Social History Smoking Status: Never smoker ROS ROS ED ROS Narrative Denies recent illness. Review of Systems ROS Unobtainable: Denies due to encephalopathy Constitutional Constitutional ED: Denies fever(s) Eyes Eyes: Denies change in vision ENT ENT ED: Denies ear pain or sore throat Cardiovascular Cardiovascular: Denies chest pain Respiratory/Chest Respiratory/Chest: Denies cough or dyspnea Gastrointestinal Gastrointestinal: Denies abdominal pain, nausea or vomiting Genitourinary Genitourinary ED: Denies dysuria Musculoskeletal Musculoskeletal: Denies myalgias Integumentary Denies rash Neurologic Neurologic: Denies headache(s) Psychiatric Psychiatric: Denies depression Endocrine Endocrinology: Denies polyuria Hematologic/Lymphatic Hematologic/Lymphatic: Denies easy bruising Allergic/Immunologic Allergic/Immunologic ED: Denies urticaria EXAM Physical Exam Narrative Exam Narrative: 30-year-old female vital signs stable afebrile. HEENT exam unremarkable. Neck nontender. Lungs clear to auscultation. Heart regular rhythm no murmur. Abdomen soft nondistended normal bowel sounds no peritoneal signs. Pelvic exam done to female nurses and patient's present in the room. Moderate to heavy vaginal bleeding with blood and large bright red clots. I had the suction on the pelvic exam. Cervical os is open. No discharge. She really has no significant pelvic tenderness. Moving all 4 extremities. No edema. Neurologically she is awake and alert. Const Vital Signs: 08/01/21 16:40 08/01/21 17:29 08/01/21 17:56 Temperature 97.8 F Temperature Source Temporal Pulse Rate 87 84 87 Respiratory Rate 14 16 14 Blood Pressure 159/91 H 102/69 98/69 Blood Pressure Mean 113 80 78 Blood Pressure Source Blood Pressure Position Blood Pressure Location Pulse Ox 100 100 98 Oxygen Delivery Method Room Air Room Air Room Air 08/01/21 18:44 08/01/21 18:54 Temperature 97.5 F L Temperature Source Temporal Pulse Rate 88 83 Respiratory Rate 15 14 Blood Pressure 98/70 103/63 Blood Pressure Mean 79 76 Blood Pressure Source Monitor Blood Pressure Position Supine Blood Pressure Location Right Arm Pulse Ox 96 98 Oxygen Delivery Method Room Air Room Air Positive well nourished and well developed; Negative for obese, cachectic, contractures or unkempt General Appearance ED: well developed; Negative for unkempt, cachectic, contractures or pallor Nutritional Appearance: Negative for cachectic or obese HEENT Reports moist mucous membranes Negative for trauma or tenderness Eyes PERRL and EOMs intact bilaterally Neck no lymphadenopathy, supple and no JVD Thyroid: Negative for tender Chest Wall inspection of chest normal and palpation of chest normal Resp normal respiratory effort and clear to auscultation bilaterally Auscultation: Negative for rales, rhonchi or diminished lung sounds Cardio regular rate, regular rhythm, S1 normal heart sound, no murmurs and no JVD GI normal to inspection, nondistended, normoactive bowel sounds, soft to palpation, non-tender, non-distended and no masses Auscultation: normoactive bowel sounds; Negative for hypoactive bowel sounds Palpation: Negative for tender, guarding or rigid no CVA tenderness Neuro oriented x3 and CN's II-XII intact bilaterally Sensorium / Orientation: alert, oriented to person, oriented to place and oriented to time; Negative for confused, lethargic or stuporous Motor Exam: strength 5/5 throughout Psych mental status grossly normal Appearance: Negative for unkempt Attitude: No agitated Mood & Affect: depressed; Negative for anxious or tearful Skin no rashes or lesions noted and no wounds General Skin Exam: Negative for jaundice or pallor MDM MDM MDM Narrative Medical decision making narrative: 30-year-old G8, P6 Ab1 female with that being a miscarriage. Approximately 8 weeks no care as of yet with this . She is O- blood type and received RhoGam in the past. Started having heavy vaginal bleeding today with spotting at different times of the . She is concerned she is having another miscarriage. Labs are being obtained with ultrasound. Patient be treated with IV fluids I will have OB on page. Patient also be treated with RhoGam. Clinical impression is miscarriage with heavy vaginal bleeding. Repeat exam patient is receiving IV fluids. Currently her blood pressure is 108/63. She is stable. She is resting comfortably. Waiting OB evaluation and the RhoGam. Patient is doing well at 1900. The [facility] physician covering for her physician has been evaluated and will take her for a D&C to the OR. Lab Data Attestation: I reviewed the patient's lab results. Lab results narrative: CBC shows a hemoglobin of 13.1 and hematocrit of 38. Pelvic ultrasound per the electrical test technician shows a miscarriage. Quantitative hCG is 1546. Blood type O-. Labs: Laboratory Results - last 24 hr 08/01/21 08/01/21 08/01/21 16:49 16:49 16:49 Hgb 13.1 Hct 38.8 HCG, Quant 1546 H Blood Type O NEGATIVE Antibody Screen NEGATIVE Radiography Diagnostic Testing: Clinical Impression(s) from Imaging Studies Obstetrics Ultrasound 08/01/21 16:49 IMPRESSION: demise. Electronically Signed: Alexander Stuart MD at 18:11 EST , Service support , ADDENDUM: 08/01/21 [id number] IMPRESSION: demise. N.B. : The above Results were Read Back by Alexander Stuart MD to MD enriqueta, and understanding confirmed on 08/01/2021 18:17:29 (ET). Electronically Signed: Alexander Stuart MD at 18:11 EST , Service support , Discharge Plan Triage Chief Complaint: Vag Bleeding Other Complaint: Vag Bld, Preg ED Provider: Ahsan Jacobs Dx/Rx/DC Orders Clinical Impression: Spontaneous miscarriage, Vaginal bleeding in patient after first trimester, Need for rhogam due to Rh negative mother Primary Care Provider: Care Physician,No Primary
[2021-08-01 17:04] LABS: Hematocrit 38.8 % (37-47); Hemoglobin 13.1 g/dL (12.0-15.0)
[2021-08-01] MEDS: 0.9% Normal Saline 1,000 ML 1000 ML IV (17:11)
[2021-08-01] MEDS: 0.9% Normal Saline 1,000 ML 999 ML IV (17:12)
[2021-08-01 18:10] LABS: hCG Titer Quant., Serum 1546 mIU/mL (1-3)
--- NOTE | 2021-08-01 18:16 | PCM.HP.BLA ---
History and Physical Date of Admission: 08/01/21 Chief complaint: Vaginal bleeding History of present illness: 30-year-old G8, P6 at 8 weeks and 0 days by LMP arrives with vaginal bleeding, heavy period with some clots. Denies weakness, fevers, chills, chest pain, shortness of breath, nausea vomiting. Obstetric history: History of six STDs and one SAB along with current Past medical history: None Medications: None Past surgical history: [place] tooth extraction Allergies: Bactrim, penicillin Social history: Denies smoking, alcohol use, drug use Family history: Denies history DVT or PE Review of systems: Besides above pertinent positives a full review of systems was performed and found to be negative Physical exam: Vital signs: Blood pressure 102/69 pulse 87 respiratory rate 14 SPO2 98% on room air General: Normal-appearing overall no acute distress, tearful with miscarriage HEENT: Normocephalic atraumatic no cervical of adenopathy Cardiac/respiratory: No use of accessory muscles, nonlabored breathing Abdomen: Soft, nontender, nondistended Extremities: No peripheral edema normal peripheral pulses Psych: Normal affect, demeanor nonpressured speech Labs: Hemoglobin 13.1, hematocrit 38.8%. Blood type O- antibody negative Pelvic ultrasound: I reviewed the images with pelvic ultrasound with gestational sac that is irregular in shape and measuring 17 mm along with a crown-rump length of 3.3 mm no heart tones Assessment and plan: 30-year-old G8, P6 at 8 weeks with heavy vaginal bleeding and eminent miscarriage with above ultrasound findings in need of suction dilation and curettage. Patient understands the risk of the procedure include but not limited to visceral or vascular injury, prolonged hospitalization, blood loss and need for transfusion, reoperation. Educated patient on findings and agrees she would like suction dilation curettage, all questions answered. Will discuss with timing of surgery with anesthesia, THOMAS. Patient Rh+ will need RhoGam
[2021-08-01] MEDS: 0.9% Normal Saline 1,000 ML 100 ML IV (19:30)
--- NOTE | 2021-08-01 20:36 | PCM.DC ---
Discharge Instructions Diet Discharge Diet: No restrictions Activity Discharge Activity: Return to Normal Activity, May Drive and May Shower May resume sexual activity in: 4-6 weeks Weight Bearing Status: Weight bearing as tolerated Dressing / Incision Call your doctor if your incision/area has: Continuous Slow Oozing and Foul Smelling Discharge Call your doctor if you observe: Fever of 101 or Higher, Shortness of breath and Chest pain Follow Up Care Please Follow Up With: Marcos Hernandez MD When: follow up 2 weeks postoperatively Test Results: Test results from this visit will be discussed in further detail at your follow-up appointment, if applicable. Discharge Plan Admission Attending Provider: Marcos Hernandez Primary Care Provider: Care Physician,No Primary Discharge Orders/Prescriptions Prescriptions: No Action vit,[id number] 1 TABLET tablet 1 tab PO DAILY RF: 0 Referrals / Follow Up: Care Physician,No Primary [Primary Care Provider] -
--- NOTE | 2021-08-01 20:37 | PCM.OPRPT ---
Report of Operation Date of Procedure: 08/01/21 Pre-Operative Diagnosis: Missed Post-Operative Diagnosis: Missed Surgery/Procedure Performed:: Suction dilation and curettage Description of Surgical Findings:: Surgeon: Marcos Hernandez M.D. Anethesia: MAC EBL: 25cc UOP: 1000cc IVF: 750cc Complications: none Specimen: Products of conception Findings: cervix closed. 8mm curved suction curettage used. Moderate amount of products of conception. Consent: Patient arrived with vaginal bleeding at 8 weeks with missed/inevitable in need of suction dilation and curettage. Patient understands the risk of the procedure include but are not limited to visceral or vascular injury, prolonged hospitalization, blood loss and need for transfusion, reoperation. Patient stated understanding and wished to proceed. All questions were answered and consent was signed. Procedure: Patient was brought back to the OR where MAC anesthesia was found to be adequate. 200 mg of doxycycline given for infection prophylaxis. Patient was prepared and draped in a dorsal lithotomy position with yellowfin stirrups. A weighted speculum was placed in the posterior aspect of the vagina and cervical dilators were used to dilate the cervix. 8 millimeter curved suction curettage was used under direct visualization. Products of conception sent to pathology. Good hemostasis was noted. All counts were correct x2. Patient tolerated the procedure well and was brought to recovery in a stable condition.
== END 2021-08-01 22:00 | disposition home or self-care (01) ==
LOC: ED 17:21 → SDC 18:46 → AC 18:46
PROVIDERS: Emergency Provider Emergency Medicine; Visit Provider Obstetrics & Gynecology
PROC: (CPT 59820; principal; 2021-08-01 19:15)
DX: O02.1 Missed abortion (principal); Z3A.08 8 weeks gestation of pregnancy
CPT/HCPCS: 01965; 59820; 76817; 84702; 85014; 85018; 86850; 86900; 86901; 88305; 90384; 99284; J7030; A4216; J2790

== ENCOUNTER 2021-10-21 14:20 | Outpatient (CLI) | payer OTHER, SELFPAY ==
[2021-10-21 15:57] LABS: Absolute Lymphocyte Count 1.37 X10^3/uL (0.83-4.51); Basophil# 0.01 X10^3/uL; Basophil% 0.2 % (0-1); Eosinophil# 0.01 X10^3/uL; Eosinophils% 0.2 % (0-5); Hematocrit 33.3 % (37-47); Hemoglobin 10.9 g/dL (12.0-15.0); Lymphocyte # 1.37 X10^3/ul (0.83-4.51); Lymphocyte % 24.2 % (19-41); Mean Corp Hgb Conc 32.7 g/dL (32-36); Mean Corpuscular Hgb 26.7 pg (27.0-32.0); Mean Corpuscular Volume 81.4 fL (81-99); Monocyte# 0.26 X10^3/uL; Monocyte% 4.6 % (0-10); NRBC Flagged by Analyzer 0 % (0-5); Neutrophil # 3.99 X10^3/uL (2.7-7.7); Neutrophil % 70.4 % (47-70); Platelet Count 296 K/mm3 (150-450); RBC Distribution Width CV 15.2 % (11.6-14.6); Red Blood Count 4.09 M/mm3 (4.2-5.4); White Blood Count 5.7 K/mm3 (4.4-11.0)
[2021-10-22 08:47] LABS: HIV - WCH Non-Reactive (Nonreactive); Hepatitis B Surface Antigen Non-Reactive (Nonreactive); Hepatitis C Antibody Non-Reactive (Nonreactive); Rubella IgG Reactive (Nonreactive); Syphilis Antibodies Non-reactive
[2021-10-23 22:06] LABS: Chlamydia By Nucleic Acid AMP Negative (Negative)
[2021-10-23 22:15] LABS: Gonococcus By Nucleic Acid AMP Negative (Negative)
== END 2021-10-21 23:59 | disposition short-term general hospital (02) ==
PROVIDERS: Visit Provider Student in an Organized Health Care Education/Training Program
DX: Z34.81 Encounter for supervision of other normal pregnancy, first trimester (principal); Z11.3 Encounter for screening for infections with a predominantly sexual mode of transmission
CPT/HCPCS: 36415; 85025; 86703; 86762; 86780; 86803; 87077; 87086; 87088; 87186; 87340; 87491; 87591

== ENCOUNTER 2021-12-23 16:59 | Outpatient (CLI) | payer OTHER, SELFPAY | END 2021-12-23 23:59 | disposition home or self-care (01) | LOC: LABSPEC 17:00 | PROVIDERS: Visit Provider Student in an Organized Health Care Education/Training Program | DX: Z87.440 Personal history of urinary (tract) infections (principal) | CPT/HCPCS: 87077; 87086; 87088 ==

== ENCOUNTER → 2022-01-28 | Outpatient (CLI) | payer OTHER, SELFPAY ==
[2022-01-28 15:00] LABS: Hematocrit 29.9 % (37-47); Mean Corp Hgb Conc 33.4 g/dL (32-36); Mean Corpuscular Hgb 30.6 pg (27.0-32.0); Mean Corpuscular Volume 91.4 fL (81-99); Mean Platelet Vol. 9.1 fl (6.2-12.0); Platelet Count 250 K/mm3 (150-450); RBC Distribution Width CV 15.5 % (11.6-14.6); RBC Distribution Width SD 51.6 fl (35.1-43.9); Red Blood Count 3.27 M/mm3 (4.2-5.4); White Blood Count 6.9 K/mm3 (4.4-11.0)
[2022-01-28 15:25] LABS: Glucose Challenge Gest 1H 50g 134 mg/dL (70-140)
== END | disposition home or self-care (01) ==
PROVIDERS: Visit Provider Student in an Organized Health Care Education/Training Program
DX: Z34.82 Encounter for supervision of other normal pregnancy, second trimester (principal)
CPT/HCPCS: 36415; 82950; 85027

== ENCOUNTER → 2022-02-25 | Outpatient (CLI) | payer OTHER, SELFPAY | END | disposition home or self-care (01) | LOC: WOBLAB 16:28 | PROVIDERS: Visit Provider Student in an Organized Health Care Education/Training Program | DX: Z34.83 Encounter for supervision of other normal pregnancy, third trimester (principal) | CPT/HCPCS: 36415; 86850 ==

== ENCOUNTER 2022-05-18 00:05 | Inpatient (IN) | payer OTHER, SELFPAY ==
[2022-05-17 21:29] VITALS: BMI 25.4
[2022-05-17 21:34] VITALS: PULSE 94; O2SAT 99
[2022-05-17 21:35] VITALS: BP 119/73; PULSE 91; TEMP 36.5; O2SAT 97
[2022-05-17 23:52] VITALS: BP 111/68; PULSE 73; TEMP 36.3; O2SAT 99
[2022-05-18] VITALS (29 sets, daily range): BP systolic 94–120; BP diastolic 56–71; PULSE 63–92; RESP 15–16; TEMP 36.2–36.9; O2SAT 98–100
[2022-05-18] MEDS: Lactated Ringers 1,000 ML 50 ML IV (00:15)
[2022-05-18 00:36] LABS: Absolute Lymphocyte Count 1.71 X10^3/uL (0.83-4.51); Absolute Neutrophil Count 4.4 X10^3/uL (2.0-7.7); Basophil# 0.04 X10^3/uL; Basophil% 0.6 % (0-1); Eosinophil# 0.06 X10^3/uL; Eosinophils% 0.9 % (0-5); Hematocrit 31.6 % (37-47); Hemoglobin 10.6 g/dL (12.0-15.0); Lymphocyte # 1.71 X10^3/ul (0.83-4.51); Lymphocyte % 25.7 % (19-41); Mean Corp Hgb Conc 33.5 g/dL (32-36); Mean Corpuscular Hgb 30.1 pg (27.0-32.0); Mean Corpuscular Volume 89.8 fL (81-99); Mean Platelet Vol. 9.7 fl (6.2-12.0); Monocyte# 0.41 X10^3/uL; Monocyte% 6.2 % (0-10); NRBC Flagged by Analyzer 0 % (0-5); Neutrophil # 4.39 X10^3/uL (2.7-7.7); Platelet Count 218 K/mm3 (150-450); RBC Distribution Width CV 13.8 % (11.6-14.6); RBC Distribution Width SD 44.8 fl (35.1-43.9); Red Blood Count 3.52 M/mm3 (4.2-5.4); White Blood Count 6.7 K/mm3 (4.4-11.0)
[2022-05-18] MEDS: LACTATED RINGERS 500 ML 999 ML IV (02:10)
[2022-05-18] MEDS: Oxytocin 30 units/NS 500 ml 30 UNITS/500 ML IV.SOLN IV (05:50)
[2022-05-18] MEDS: Oxytocin 30 units/NS 500 ml 30 UNITS/500 ML IV.SOLN 334 UNITS IV (08:42)
--- NOTE | 2022-05-18 08:59 | PCM.HP.BLA ---
History and Physical Date of Admission: 05/18/22 31-year-old at 40/5 weeks, SERENA 05/13/2022 by LMP consistent with early ultrasound, admitted for induction of labor at term. Patient presented with contractions. Cervix unchanged. However patient at term, therefore elective induction proceeded with. Denies leaking of fluid, vaginal bleeding. Reports movement. Denies headache, vision changes, chest pain or shortness of breath, nausea or vomiting, diarrhea or constipation, fevers or chills. 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 39-week G2: 2014. 37-week G3: 2016. 40-week G4: 2017. 40-week G5: 2018. First trimester SAB G6: 2019. 40-week G7: Term G8:SAB, D&C G9 current Medical history: Denies Surgical history: D&C Allergies: Penicillin, sulfa both cause hives Family history: Noncontributory Social: Denies tobacco, alcohol, drug use Review of system: Negative otherwise stated above Physical exam: Vitals blood pressure 115/65, pulse 76, temp 98.2 ?F, pulse ox 100% on room air General: No acute distress, uncomfortable with contractions HEENT: Normal cephalic/atraumatic, PERRLA Cardiorespiratory: No increased effort Abdomen: Soft, nontender, gravid Extremity: No edema Neurologic: No focal deficits, cranial nerves II through XII grossly intact Musculoskeletal: Strength out of 5 throughout all extremities Cervical exam: 7/90/0 heart rate: 135/mod andreina/+accel/no decel [place]: q1-3 panel AB- GBS positive Gonorrhea/chlamydia negative Hepatitis C/hepatitis B negative HIV negative Syphilis negative Rubella immune Assessment/plan: 31-year-old G9, P6 at 40/5 weeks admitted for elective induction of labor. Complicated by GBS positive, grand multiparity. ?Admit to labor and delivery ?Vancomycin for GBS prophylaxis ?Augment labor with Pitocin
--- NOTE | 2022-05-18 09:08 | EX.PCM.OBRPT ---
Vaginal Delivery Operative Information Date of Procedure: 05/18/22 Pre-Operative Diagnosis: Dove intrauterine Post-Operative Diagnosis: Dove intrauterine Surgery / Procedure Performed: Spontaneous Vaginal Delivery Type of Anesthesia: None Estimated Blood Loss: 300cc Findings Description of Procedure: Spontaneous vaginal delivery of viable infant female, precipitous. No nucha cord. Baby to mom. Cord clamped and cut. Spontaneous delivery of placenta. First-degree laceration, injected with lidocaine, repaired in usual fashion. Hemostatic. Refractory Products Supervisor and baby nurse arrived after delivery for meconium fluid. A Gender: Female (1 minute): 8 (5 minute): 9
--- NOTE | 2022-05-18 12:49 | NURSING ---
This RN got report from Dolly Grace RN at 1230 and taking over patient care.
[2022-05-18] MEDS: Ibuprofen 600 MG Tablet PO (18:01)
[2022-05-19 00:30] VITALS: BP 96/66; PULSE 76; RESP 16; TEMP 36.4; O2SAT 98
[2022-05-19 04:13] VITALS: BP 92/57; PULSE 69; RESP 14; TEMP 36.5; O2SAT 97
--- NOTE | 2022-05-19 07:22 | DCINST_ITS ---
Discharge Instructions Diet Discharge Diet: No restrictions Activity Discharge Activity: Return to Normal Activity, May Drive and May Shower May resume sexual activity in: 4-6 weeks Weight Bearing Status: Weight bearing as tolerated Dressing / Incision Call your doctor if your incision/area has: Continuous Slow Oozing and Foul Smelling Discharge Call your doctor if you observe: Fever of 101 or Higher, Shortness of breath and Chest pain Follow Up Care Please Follow Up With: Marcos Hernandez MD When: follow up 4 to 6 weeks Test Results: Test results from this visit will be discussed in further detail at your follow- up appointment, if applicable. Discharge Plan Admission Admit Date/Time: 05/18/22 00:05 Attending Provider: Kajal Hernandez Primary Care Provider: Care Physician,No Primary Discharge Orders/Prescriptions Prescriptions: No Action vit,[id number] 1 TABLET tablet 1 tab PO DAILY ferrous sulfate 134 mg (27 mg iron) Tablet 1 mg PO QWEEK Referrals / Follow Up: Care Physician,No Primary [Primary Care Provider] - Disposition Discharge Orders: Discharge Patient (Routine); Ordered 05/19/22 Ordered By: Dr. Marcos Hernandez
--- NOTE | 2022-05-19 07:22 | PCM.PN.OB ---
Subjective Subjective No overnight complaints. Pain well controlled Objective Data Objective Data Vital Signs: Vital Signs Temp Pulse Resp BP Pulse Ox O2 Del Method 97.7 F L 69 14 92/57 L 97 Room Air 05/19/22 04:13 05/19/22 04:13 05/19/22 04:13 05/19/22 04:13 05/19/22 04:13 05/19/22 04:13 Oxygen Delivery Method Room Air Weight: 147 lb 0.773 oz Body Mass Index (BMI) 25.4 Intake & Output: Intake and Output for Last 24 Hours 05/17/22 05/18/22 05/19/22 23:59 23:59 23:59 Intake Total 2164.30 / 2164.30 Output Total 250 / 250 Balance 1914.30 / 1914.30 Lab / Micro Data Result Diagrams: 05/18/22 00:15 Micro: Microbiology 05/18/22 00:15 Nasal Secretion SARS-CoV-2 Antigen (Rapid) - Final Physical Exam Const alert, oriented x3, no apparent distress, average body habitus, healthy appearing and well nourished HEENT normocephalic and moist oral mucous membranes Eyes PERRL Neck full ROM Resp normal respiratory effort, no retractions and no use of accessory muscles GI GI Narrative: Soft, nontender, uterus firm and below umbilicus Extremity normal to inspection and full ROM Neuro moves all extremities and no focal motor deficits Psych mental status grossly normal, affect normal, speech normal and activity/motor behavior normal Assessment & Plan (1) Vaginal delivery: PLAN: day 1. Breast-feeding. Pain well controlled. Okay to discharge home if okay with bridal sales consultant
[2022-05-19 08:44] VITALS: BP 104/63; PULSE 76; RESP 16; TEMP 36.5; O2SAT 98
[2022-05-19 14:41] VITALS: BP 111/67; PULSE 72; RESP 16; TEMP 36.5; O2SAT 98
== END 2022-05-19 16:25 | disposition home or self-care (01) | DRG 807 ==
LOC: WPOUT 00:14 → WP 00:14
PROVIDERS: Admitting Provider Student in an Organized Health Care Education/Training Program; Visit Provider Student in an Organized Health Care Education/Training Program
DX: O98.82 Other maternal infectious and parasitic diseases complicating childbirth (principal); Z37.0 Single live birth; B95.1 Streptococcus, group B, as the cause of diseases classified elsewhere; O77.0 Labor and delivery complicated by meconium in amniotic fluid; O70.0 First degree perineal laceration during delivery; Z3A.40 40 weeks gestation of pregnancy
CPT/HCPCS: 59050; 85025; 86850; 86900; 86901; 87426; 99218; J7050; J7120; G0378

== ENCOUNTER → 2023-05-06 | Outpatient (CLI) | payer OTHER, SELFPAY ==
[2023-05-06 16:07] LABS: Absolute Lymphocyte Count 1.61 X10^3/uL (0.83-4.51); Absolute Neutrophil Count 4.5 X10^3/uL (2.0-7.7); Basophil# 0.03 X10^3/uL; Basophil% 0.5 % (0-1); Eosinophil# 0.05 X10^3/uL; Eosinophils% 0.8 % (0-5); Hematocrit 34.4 % (37-47); Hemoglobin 11.8 g/dL (12.0-15.0); Lymphocyte # 1.61 X10^3/ul (0.83-4.51); Lymphocyte % 24.5 % (19-41); Mean Corp Hgb Conc 34.3 g/dL (32-36); Mean Corpuscular Hgb 30.3 pg (27.0-32.0); Mean Corpuscular Volume 88.4 fL (81-99); Mean Platelet Vol. 9.6 fl (6.2-12.0); Monocyte# 0.31 X10^3/uL; Monocyte% 4.7 % (0-10); NRBC Flagged by Analyzer 0 % (0-5); Neutrophil # 4.54 X10^3/uL (2.7-7.7); Neutrophil % 69.2 % (47-70); Platelet Count 278 K/mm3 (150-450); RBC Distribution Width CV 13.9 % (11.6-14.6); RBC Distribution Width SD 44.4 fl (35.1-43.9); Red Blood Count 3.89 M/mm3 (4.2-5.4); White Blood Count 6.6 K/mm3 (4.4-11.0)
[2023-05-06 17:25] LABS: HIV - WCH Non-Reactive (Nonreactive); Hepatitis B Surface Antigen Non-Reactive (Nonreactive); Hepatitis C Antibody Non-Reactive (Nonreactive); Rubella IgG Reactive (Nonreactive); Syphilis Antibodies Non-reactive
[2023-05-08 06:09] LABS: V-Zoster IgG (Immunity) 2695 index (Immune >165)
[2023-05-12 16:09] LABS: HPV APTIMA, High Risk Negative (Negative)
== END | disposition home or self-care (01) ==
PROVIDERS: Visit Provider Student in an Organized Health Care Education/Training Program
DX: Z01.419 Encounter for gynecological examination (general) (routine) without abnormal findings (principal); N91.1 Secondary amenorrhea
CPT/HCPCS: 36415; 85025; 86703; 86762; 86780; 86787; 86803; 87086; 87088; 87340; 87624; 88175; G0145

== ENCOUNTER → 2023-05-15 | Outpatient (CLI) | payer OTHER, SELFPAY ==
--- NOTE | 2023-05-15 14:23 | US_ITS ---
EXAM: Diagnostic unilateral right breast ultrasound. REASON FOR EXAM: Female, 32 years old. Palpable lump in the right lower quadrant PERTINENT HISTORY: No reported personal or family history of breast cancer. TECHNIQUE: Real-time hopkins scale and color sonographic images were obtained of the right lower outer breast from the 8:00 to 9:00 position in the palpable area of clinical concern was performed. COMPARISON: None. FINDINGS: Please note that although mammogram was ordered, this was not performed as the patient is 12 weeks . As the patient was able to guide us to a palpable finding, only a ultrasound assessment of the palpable area of concern was performed. Ultrasound findings: No suspicious masses or abnormal fluid collections in the palpable area of clinical concern. US/Breast Limited Unilateral IMPRESSION: Negative ultrasound with no suspicious masses or findings to correlate with palpable area of clinical concern in the imaged right breast. Please note that although mammogram was ordered, this was not performed as the patient is 12 weeks . As the patient was able to guide us to a palpable finding, only a ultrasound assessment of the palpable area of concern was performed. A diagnostic mammogram can be performed if clinically warranted if persistent concerns for malignancy. Follow-up with physical examination is recommended and repeat ultrasound can be obtained if new or enlarging mass or nipple discharge. ASSESSMENT CATEGORY: BIRADS Category 1: Negative. A letter regarding these results will be sent to the patient by the facility within 30 days. RECOMMENDATION: Detailed in the impression above. Approximately 10% of breast cancers are not detected by mammography. A normal mammogram should not delay biopsy of a clinically suspicious abnormality. Electronically Signed: Trevor Blum DO at 16:41 EDT ,
== END | disposition home or self-care (01) ==
PROVIDERS: Referring Provider Student in an Organized Health Care Education/Training Program; Visit Provider Student in an Organized Health Care Education/Training Program
DX: N63.13 Unspecified lump in the right breast, lower outer quadrant (principal)
CPT/HCPCS: 76642

== ENCOUNTER 2023-11-28 17:28 | Inpatient (IN) | payer OTHER, SELFPAY ==
[2023-11-28] VITALS (14 sets, daily range): BP systolic 104–133; BP diastolic 57–76; PULSE 83–117; RESP 16; TEMP 36.8–37.6; O2SAT 96–99; BMI 26.2
--- OUTSIDE RECORDS SUMMARY | 2023-11-28 17:03 | XMS RPT_ITS | CCD ---
Author Name Unknown Address [address] [place] [address] Organization [facility] Care Team Providers Care Dentist Name Role Phone Unavailable Primary Care Provider UnavailGLADYS Damon Attending Unavailable RAMO VELASCO Referring Unavailable SIS LOYA Attending Unavailable REESE LAWS Attending Unavailable RAMO VELASCO Attending Unavailable FABRIZIO GARCIA Attending Unavailable SANJAY PETERSON Attending Unavailable HENRI, GLADYS Attending Unavailable HENRI, GLADYS Attending Unavailable SIS LOYA Attending Unavailable BANPERLA Liriano Attending Unavailable BAN, PERLA Referring Unavailable ABEL CAMPBELL Attending Unavail able BAN, PERLA Referring Unavailable Allergies Allergy Classification Reported Allergen(s) Allergy Type Date of Onset Reaction(s) Facility (14 sources) Penicillins; Translations: [PENICILLINS] Drug Int[facility]-09-[facility] Work Phone: (14 sources) Sulfamethoxazole / Trimethoprim; Translations: [SULFAMETHOXAZOLE-TR IMETHOPRIM] Drug Allergy 03-09-20 18 [facility] Work Phone: Medications Completed/Discontinued Medications Medication Drug Class(es) Dates Sig (Normalized) Sig (Original) acetaminophen 325 mg / guaiFENesin 200 mg / phenylephrine hydrochloride 5 mg oral tablet (2 sources) alpha-1 Adrenergic Agonist Start: 03-09-2018 End: 06-08-2023 Phenylephrine-Aceta minophen-GG (TYLENOL COLD HEAD CONGEST SEVR) 5-325-200 mg tab Indications: Viral URI Take 1 Dose by mouth as directed. 30 tablet 0 03/09/2018 06/08/2023 Discontinued Problems Active Problems Problem Classification Problem Date Documented Da te Episodic/Chronic Allergic reactions (1 source) Allergy to penicillin; Translations: [Allergy status to penicillin] 11-06-2023 Episodic Other complications of (2 sources) Anemia of ; Translations: [Anemia complicating , third trimester] 11-06-2023 Chronic Other complications of (7 sources) RhD negative; Translations: [Other specified related conditions, unspecified trimester] Onset: 11-06-2023 09-03-2023 Episodic Other complications of (4 sources) Uterine size for dates discrepancy; Translations: [Uterine size-date discrepancy, third trimester] 09-03-2023 Episodic Other complications of (1 source) Uterine size-date discrepancy, third trimester; Translations: [Uterine size-date discrepancy, third trimester] Onset: 09-30-2023 Episodic Other and delivery including normal (20 sources) with uncertain dates; Translations: [Encounter for supervision of normal , unspecified, first trimester] Onset: 06-08-2023 06-08-2023 Episodic Other screening for suspected conditions (not mental disorders or infectious disease) (1 source) Patient encounter status; Translations: [Encounter for other specified screening] 11-06-2023 Episodic Residual codes; unclassified (2 sources) Gestation period, 15 weeks; Translations: [15 weeks gestation of ] 06-08-2023 Episodic Residual codes; unclassified (1 source) Gestation period, 19 weeks; Translations: [19 weeks gestation of ] 07-07-2023 Episodic Residual codes; unclassified (1 source) Gestation period, 23 weeks; Translations: [23 weeks gestation of ] 08-05-2023 Episodic Residual codes; unclassified (1 source) Gestation period, 27 weeks; Translations: [27 weeks gestation of ] 09-03-2023 Episodic Residual codes; unclassified (3 sources) Gestation period, 37 weeks; Translations: [37 weeks gestation of ] 11-06-2023 Episodic Residual codes; unclassified (1 source) 37 weeks gestation of ; Translations: [37 weeks gestation of ] Onset: 11-12-2023 Episodic Residual codes; unclassified (1 source) 34 weeks gestation of ; Translations: [34 weeks gestation of ] Onset: 11-06-2023 Episodic Residual codes; unclassified (1 source) 29 weeks gestation of ; Translations: [29 weeks gestation of ] Onset: 09-30-2023 Episodic Residual codes; unclassified (1 source) 23 weeks gestation of ; Translations: [23 weeks gestation of ] Onset: 09-03-2023 Episodic Residual codes; unclassified (1 source) Gestation period, 38 weeks; Translations: [38 weeks gestation of ] 11-19-2023 Episodic Residual codes; unclassified (1 source) Gestation period, 39 weeks; Translations: [39 weeks gestation of ] 11-24-2023 Episodic Unclassified (2 sources) No additional problems on file Past or Other Problems Problem Classification Problem Date Documented Da te Episodic/Chronic Other complications of (14 sources) Grand multipara; Translations: [Supervision of with grand multiparity, second trimester] Onset: 07-07-2023 07-07-2023 Episodic Other complications of (1 source) Supervision of with grand multiparity, second trimester; Translations: [Grand multiparity with current in second trimester] Onset: 07-07-2023 Episodic Residual codes; unclassified (1 source) 15 weeks gestation of ; Translations: [15 weeks gestation of ] Onset: 07-07-2023 Episodic Results Test Name Value Interpretation Reference Range Facil ity Vital Signs Date Time Vital Sign Value Performing Clinician Faci lity 11-24-2023 10:40-0500 Body weight 67.77 kg Reese Laws MD Work Phone: [facility] 11-24-2023 10:40-0500 Diastolic blood pressure 64 mm[Hg] Reese Laws MD Work Phone: [facility] 11-24-2023 10:40-0500 Systolic blood pressure 108 mm[Hg] Reese Laws MD Work Phone: [facility] 11-19-2023 16:07-0500 Body weight 67.13 kg Sis Loya MD Work Phone: [facility] 11-19-2023 16:07-0500 Diastolic blood pressure 62 mm[Hg] Sis Loya MD Work Phone: [facility] 11-19-2023 16:07-0500 Systolic blood pressure 100 mm[Hg] Sis Loya MD Work Phone: [facility] 11-12-2023 13:49-0500 Body weight 67.5 kg Gladys Haury GRAIN BROKER AND MARKET OPERATOR.DISK OPERATOR Work Phone: [facility] 11-12-2023 13:49-0500 Diastolic blood pressure 60 mm[Hg] Gladys Haury GRAIN BROKER AND MARKET OPERATOR.DISK OPERATOR Work Phone: [facility] 11-12-2023 13:49-0500 Systolic blood pressure 100 mm[Hg] Gladys Haury GRAIN BROKER AND MARKET OPERATOR.DISK OPERATOR Work Phone: [facility] 11-06-2023 08:30-0500 Body weight 67.13 kg Gladys Haury GRAIN BROKER AND MARKET OPERATOR.DISK OPERATOR Work Phone: [facility] 11-06-2023 08:30-0500 Diastolic blood pressure 62 mm[Hg] Gladys Haury GRAIN BROKER AND MARKET OPERATOR.DISK OPERATOR Work Phone: [facility] 11-06-2023 08:30-0500 Systolic blood pressure 112 mm[Hg] Gladys Haury GRAIN BROKER AND MARKET OPERATOR.DISK OPERATOR Work Phone: [facility] 09-03-2023 14:16-0500 Body weight 65.77 kg Gladys Haury GRAIN BROKER AND MARKET OPERATOR.DISK OPERATOR Work Phone: [facility] 09-03-2023 14:16-0500 Diastolic blood pressure 64 mm[Hg] Gladys Haury GRAIN BROKER AND MARKET OPERATOR.DISK OPERATOR Work Phone: [facility] 09-03-2023 14:16-0500 Systolic blood pressure 104 mm[Hg] Gladys Haury GRAIN BROKER AND MARKET OPERATOR.DISK OPERATOR Work Phone: [facility] 08-05-2023 15:24-0500 Body weight 64.77 kg Ramo Velasco GRAIN BROKER AND MARKET OPERATOR.CNM Work Phone: [facility] 08-05-2023 15:24-0500 Diastolic blood pressure 64 mm[Hg] Ramo Velasco GRAIN BROKER AND MARKET OPERATOR.CNM Work Phone: [facility] 08-05-2023 15:24-0500 Systolic blood pressure 108 mm[Hg] Ramo Velasco GRAIN BROKER AND MARKET OPERATOR.CNM Work Phone: [facility] 07-07-2023 15:18-0400 Body weight 62.6 kg Abel Coorna MD Work Phone: [facility] 07-07-2023 15:18-0400 Diastolic blood pressure 58 mm[Hg] Abel Corona MD Work Phone: [facility] 07-07-2023 15:18-0400 Systolic blood pressure 98 mm[Hg] Abel Corona MD Work Phone: [facility] 06-08-2023 13:20-0400 Body height 160 cm Perla [place] GRAIN BROKER AND MARKET OPERATOR.DISK OPERATOR Work Phone: [facility] 06-08-2023 13:20-0400 Body weight 62.05 kg Perla Ban GRAIN BROKER AND MARKET OPERATOR.DISK OPERATOR Work Phone: [facility] 06-08-2023 13:20-0400 Diastolic blood pressure 60 mm[Hg] Perla [place] GRAIN BROKER AND MARKET OPERATOR.DISK OPERATOR Work Phone: [facility] 06-08-2023 13:20-0400 Systolic blood pressure 98 mm[Hg] Perla Ban GRAIN BROKER AND MARKET OPERATOR.DISK OPERATOR Work Phone: [facility] Encounters Encounter Date Encounter Type Care Provider Facility Start: 11-24-2023 End: 11-24-2023 Patient encounter procedure Reese Laws MD Work Phone: OB/Gynecology Procedures Date Procedure Procedure Detail Performing Clinician Start: 11-24-2023 URINE OB DIP B/O Reese Laws MD Work Phone: Start: 11-19-2023 URINE OB DIP B/O Sis pavon MD Work Phone: Start: 11-12-2023 URINE OB DIP B/O Gladys Richardson GRAIN BROKER AND MARKET OPERATOR.DISK OPERATOR Work Phone: Start: 11-06-2023 URINE OB DIP B/O Gladys Richardson GRAIN BROKER AND MARKET OPERATOR.DISK OPERATOR Work Phone: Start: 11-06-2023 Us preg uterus after 1st trimest 09/21 gestation Reese Laws MD Work Phone: Start: 09-03-2023 Antibody screen GLADYS Cee PEDERSEN Plan of Treatment Date Care Activity Detail Author Start: 05-06-2028 PAP TESTING PAP TESTING [facility] Start: 05-06-2028 Screening for malignant neoplasm of cervix Pap Testing [facility] Start: 10-02-2023 RSV Vaccine (1 - Risk 1-dose series) RSV Vaccine (1 - Risk 1-dose series) [facility] Start: 09-21-2023 Depression Assessment Depression Assessment [facility] Start: 08-05-2023 End: 11-04-2023 CBC W Auto Differential panel - Blood CBC + DIFF Lab Routine 23 weeks gestation of Grand multiparity with current in second trimester Expected: 08/05/2023, Expires: 11/04/2023 [facility] Work Phone: Immunizations Immunization Date Immunization Notes Care Provider Koby light 09-03-2023 RHO(D) immune globul in- IV or IM Gladys Rihcardson GRAIN BROKER AND MARKET OPERATOR.DISK OPERATOR Work Phone: [facility] Work Phone: Payers Date Payer Category Payer Unknown MMO [employer] PPO [id number] 2021-Present [phone] [address] [place] [address] PPO [id number] 2021 Unknown [id number] Social History Date Type Detail Facility Start: 03-09-2018 End: 06-08-2023 Tobacco smoking status NHIS Never smoked tobacco [facility] Work Phone: Start: 03-09-2018 End: 06-08-2023 Tobacco use and exposure Smokeless tobacco non-user [facility] Work Phone: Start: 06-01-2023 End: 09-03-2023 History of Social function [facility] Start: 06-01-2023 End: 09-03-2023 Tobacco use panel [facility] National Score (1-100), lower number is lower risk Not on file [facility] Start: 03-06-2023 [facility] Start: 1990 Sex Assigned At Not on file [facility] Start: 06-08-2023 End: 11-24-2023 Alcohol intake Lifetime non-drinker (finding) [facility] Clinical Notes 06-01-2023 to 11-24-2023 Quick Notes - Reese Laws MD - 11/24/2023 10:50 AM ESTPatient InstructionsPrenatal Quick Notes - Sis Loya MD - 11/19/2023 4:18 PM ESTPatient InstructionsPatient Instructions Note Date & Type Note Facility 11-24-2023 Miscellaneous Notes Formattin g of this note might be different from the original. KJ - VB No. LOF No. CTXS Yes - irregular. Movement: present. Other c/o: No. Medication list reviewed. Physical Exam See Flow Sheet Gen: no accute distress, well appearing Abd: soft, nontender, gravid A/P 39w4d Estimated Date of Delivery: 11/27/23 Declines to schedule IOL and wishes to follow up 1 week if not delivered S<D - normal growth US on 11/06 Labor precautions reviewed, Kick counts reviewed. Reese Laws MD documented in this encounter [facility] 11-24-2023 Instructions Feroz Liu MA - 11/24/2023 10:38 AM EST SEQUENTIAL SCREENINGS The [facility] offers sequential screenings for women who are interested in screenings for chromosomal abnormalities and certain defects during a . The sequential screen combines ultrasound and blood tests to determine the risk of chromosomal abnormalities, including Down's Syndrome (Trisomy 21) and Trisomy 18, as well as open neural tube defects including spina bifida. Ultrasound examination is performed between 11 weeks and 13 weeks gestational age. Blood tests are drawn after the ultrasound and again later in the between 15 and 21 weeks gestational age. Please let your physician know if you are interested in this testing. It will require an appointment with our dairy technician. This is not an ultrasound performed by a physician in our office during a routine visit. SIGNS AND SYMPTOMS OF LABOR 1. Contractions every 10 minutes or more often 2. Clear, pink, or brownish fluid (water) leaking from vagina 3. Feeling that baby is pushing down, pressure 4. Low, dull backache 5. Cramps that feel like a period 6. Cramps with or without diarrhea If you notice any of the above symptoms, contact our office at [phone] and ask to speak with a nurse. After hours, you can call doctors registry at [phone] OR call [facility] at [phone] and ask to have the doctor technology applications consultant paged. If you consider this an emergency, dial 9--2 or go to your nearest emergency department. NEED HELP? Are you dealing with a violent or abusive relationship? Are you a victim of rape or sexual assult? Call [facility] ([place]) 24 hour Crisis Hotline: 908.749.1780 or 877-266-9858. MANUAL Your Guide to a Healthy manual is now on-line. Visit [email or web address] to download your free copy documented in this encounter [facility] 11-19-2023 Miscellaneous Notes Formattin g of this note might be different from the original. SW- Some irregular ctx's with standing and walking. No vb, lof. Good FM. PE: Gen- NAD, well appearing Abd- Soft, gravid, NT See flowsheet A/p 38 wk gestation - Reviewed labor precautions - RTO 1 wk Sis Loya DO documented in this encounter [facility] 11-19-2023 Ana Villa LPN - 11/19/2023 3:59 PM EST SEQUENTIAL SCREENINGS The [facility] offers sequential screenings for women who are interested in screenings for chromosomal abnormalities and certain defects during a . The sequential screen combines ultrasound and blood tests to determine the risk of chromosomal abnormalities, including Down's Syndrome (Trisomy 21) and Trisomy 18, as well as open neural tube defects including spina bifida. Ultrasound examination is performed between 11 weeks and 13 weeks gestational age. Blood tests are drawn after the ultrasound and again later in the between 15 and 21 weeks gestational age. Please let your physician know if you are interested in this testing. It will require an appointment with our dairy technician. This is not an ultrasound performed by a physician in our office during a routine visit. SIGNS AND SYMPTOMS OF LABOR 1. Contractions every 10 minutes or more often 2. Clear, pink, or brownish fluid (water) leaking from vagina 3. Feeling that baby is pushing down, pressure 4. Low, dull backache 5. Cramps that feel like a period 6. Cramps with or without diarrhea If you notice any of the above symptoms, contact our office at [phone] and ask to speak with a nurse. After hours, you can call doctors registry at [phone] OR call [facility] at [phone] and ask to have the doctor technology applications consultant paged. If you consider this an emergency, dial 9-1-8 or go to your nearest emergency department. NEED HELP? Are you dealing with a violent or abusive relationship? Are you a victim of rape or sexual assult? Call [facility] ([place]) 24 hour Crisis Hotline: 603.629.1633 or 550-853-4507. MANUAL Your Guide to a Healthy manual is now on-line. Visit [email or web address] to download your free copy documented in this encounter [facility] 11-13-2023 Note Patient Outreach (KIRILL SANCHEZ) ARIANE BAÑUELOS ([id number]) 1990 F Date Time Provider Department 11/13/23 CARLOS REYES (PSS) During your visit today, we recorded the following information about you: Carlos Arellano 11/13/2023 9:38 AM Signed POPULATION HEALTH NAVIGATION OUTREACH Action/FYI Called and left a voicemail for patient to call me back directly No active mychart OB/PEDS Patient Identified by Name and : NO Outreach Outcome/Action Unable to reach patient: Left message Did you use a PCP flex slot to schedule this appointment? N/A Reason for Outreach Payer: Payor: MMO / Plan: MMO SUPER[employer] PPO / Product Type: PPO / Care Gap Reviewed:: N/A Reminder: Reminder note to check Health Maintenance for items below Health Maintenance items due: Hepatitis B Vaccine(1 of 3 - 3-dose series) Never done Covid-19 Vaccine(1) Never done DTaP,Tdap,Td Vaccine(1 - Tdap) Never done HPV Testing Never done Influenza Vaccine(1) Never done Depression Assessment Never done Navigation Signature: Carlos Sykes November 13, 2023 9:38 AM Carlos Arellano 11/13/2023 9:41 AM Signed POPULATION HEALTH NAVIGATION OUTREACH Action/FYI Patient called back and that she will be going with Dr. Lulu Zhu. Updated OB/PEDS OB/PEDS Patient Identified by Name and : YES, via phone Outreach Outcome/Action OB/PEDS field updated Did you use a PCP flex slot to schedule this appointment? N/A Navigation Signature: Carlos Sykes November 13, 2023 9:40 AM Allergies As of Date: 11/13/2023 Noted Allergy Reaction PENICILLINS 03/09/2018 4 - Hives SEPTRA (SULFAMETHOXAZOLE-TRIMETHO* 16 - Unknown Date Reviewed: 11/12/2023 Reviewed by: Gladys Richardson APRN.DISK OPERATOR - Fully Assessed Reason for Visit: Population Health Navigation Outreach [3910] Cmt: OB/PEDS Prescriptions as of 11/13/2023 - ascorbic acid/multivit-min (EMERGEN-C ORAL) Take 1 tablet by mouth once daily. - ferrous sulfate 325 mg (65 mg iron) tablet Take 1 tablet by mouth every other day. Problem List As Of Date 11/13/2023 Noted Resolved Grand multiparity with current in sec*07/07/2023 with care elsewhere in secon*07/07/2023 Supervision of normal [Z34.90] 11/06/2023 Rh negative state in antepartum period, third t*11/06/2023 Encounter Status:Closed by CARLOS ARELLANO on 11/13/23 [facility] 11-13-2023 Note HNO ID: [id number] Author: ?, ?, ? Service: ? Author Type: ? Type: Progress Notes Filed: 11/13/2023 09:41 Note Text: POPULATION HEALTH NAVIGATION OUTREACH Action/FYI Patient called back and that she will be going with Dr. Lulu Zhu. Updated OB/PEDS OB/PEDS Patient Identified by Name and : YES, via phone Outreach Outcome/Action OB/PEDS field updated Did you use a PCP flex slot to schedule this appointment? N/A Navigation Signature: Carlos Sykes November 13, 2023 9:40 AM [facility] 11-13-2023 Note HNO ID: [id number] Author: ?, ?, ? Service: ? Author Type: ? Type: Progress Notes Filed: 11/13/2023 09:38 Note Text: POPULATION HEALTH NAVIGATION OUTREACH Action/FYI Called and left a voicemail for patient to call me back directly No active mychart OB/PEDS Patient Identified by Name and : NO Outreach Outcome/Action Unable to reach patient: Left message Did you use a PCP flex slot to schedule this appointment? N/A Reason for Outreach Payer: Payor: MMO / Plan: MMO SUPERMED PPO / Product Type: PPO / Care Gap Reviewed:: N/A Reminder: Reminder note to check Health Maintenance for items below Health Maintenance items due: Hepatitis B Vaccine(1 of 3 - 3-dose series) Never done Covid-19 Vaccine(1) Never done DTaP,Tdap,Td Vaccine(1 - Tdap) Never done HPV Testing Never done Influenza Vaccine(1) Never done Depression Assessment Never done Navigation Signature: Carlos Sykes November 13, 2023 9:38 AM [facility] 11-13-2023 History of Presen t illness Narrative POPULATION HEALTH NAVIGATION OUTREACH Action/FYI Patient called back and that she will be going with Dr. Lulu Zhu. Updated OB/PEDS OB/PEDS Patient Identified by Name and : YES, via phone Outreach Outcome/Action OB/PEDS field updated Did you use a PCP flex slot to schedule this appointment? N/A Navigation Signature: Carlos Sykes November 13, 2023 9:40 AM POPULATION HEALTH NAVIGATION OUTREACH Action/FYI Called and left a voicemail for patient to call me back directly No active mychart OB/PEDS Patient Identified by Name and : NO Outreach Outcome/Action Unable to reach patient: Left message Did you use a PCP flex slot to schedule this appointment? N/A Reason for Outreach [place] Payer: Payor: MMO / Plan: MMO SUPERMED PPO / Product Type: PPO / Care Gap Reviewed:: N/A Reminder: Reminder note to check Health Maintenance for items below Health Maintenance items due: Hepatitis B Vaccine(1 of 3 - 3-dose series) Never done Covid-19 Vaccine(1) Never done DTaP,Tdap,Td Vaccine(1 - Tdap) Never done HPV Testing Never done Influenza Vaccine(1) Never done Depression Assessment Never done Navigation Signature: Carlos Sykes November 13, 2023 9:38 AM documented in this encounter [facility] 11-12-2023 Miscellaneous Notes Formattin g of this note might be different from the original. S: Ariane is a 33 year old female who presents at 37w6d for a routine visit. Feeling movement. Denies headache, visual changes, chest pain, shortness of breath, vaginal bleeding, leakage of fluid, or dysuria. Feeling well, no complaints. O: See flow sheet Gen: No apparent distress Abd: Gravid, nontender, S<D ASSESSMENT/PLAN: 1. Encounter for supervision of other normal in third trimester - ICD9: V22.1, ICD10: Z34.83 (primary diagnosis) - URINE OB DIP B/O 2. 37 weeks gestation of - ICD9: V22.2, ICD10: Z3A.37 - GBS negative - URINE OB DIP B/O 3. Uterine size-date discrepancy, third trimester - ICD9: 649.63, ICD10: O26.843 - Growth at 37 weeks: EFW 15%, AC 19%, discussed with Ariane - 12 lb TWG Labor precautions and movement reviewed. RTO in 1 week or sooner as needed. Gladys Richardson APRN.DISK OPERATOR documented in this encounter [facility] 11-12-2023 Instructions Carlos Byrne MA - 11/12/2023 1:44 PM EST SEQUENTIAL SCREENINGS The [facility] offers sequential screenings for women who are interested in screenings for chromosomal abnormalities and certain defects during a . The sequential screen combines ultrasound and blood tests to determine the risk of chromosomal abnormalities, including Down's Syndrome (Trisomy 21) and Trisomy 18, as well as open neural tube defects including spina bifida. Ultrasound examination is performed between 11 weeks and 13 weeks gestational age. Blood tests are drawn after the ultrasound and again later in the between 15 and 21 weeks gestational age. Please let your physician know if you are interested in this testing. It will require an appointment with our dairy technician. This is not an ultrasound performed by a physician in our office during a routine visit. SIGNS AND SYMPTOMS OF LABOR 1. Contractions every 10 minutes or more often 2. Clear, pink, or brownish fluid (water) leaking from vagina 3. Feeling that baby is pushing down, pressure 4. Low, dull backache 5. Cramps that feel like a period 6. Cramps with or without diarrhea If you notice any of the above symptoms, contact our office at [phone] and ask to speak with a nurse. After hours, you can call doctors registry at [phone] OR call [facility] at [phone] and ask to have the doctor technology applications consultant paged. If you consider this an emergency, dial -- or go to your nearest emergency department. NEED HELP? Are you dealing with a violent or abusive relationship? Are you a victim of rape or sexual assult? Call [facility] ([place]) 24 hour Crisis Hotline: 177.478.5998 or 474-983-9030. MANUAL Your Guide to a Healthy manual is now on-line. Visit [email or web address] [email or web address] to download your free copy documented in this encounter [facility] 11-06-2023 Miscellaneous Notes Formattin g of this note might be different from the original. S: Ariane is a 33 year old female who presents at 37w0d for a routine visit. Feeling movement. Denies headache, visual changes, chest pain, shortness of breath, vaginal bleeding, leakage of fluid, or dysuria. Feeling well, no complaints. Occasional contractions. O: See flow sheet Gen: No apparent distress Abd: Gravid, nontender, S<D ASSESSMENT/PLAN: Encounter for supervision of other normal in third trimester - ICD9: V22.1, ICD10: Z34.83 (primary diagnosis) - Growth today for size discrepancy last visit, report pending 37 weeks gestation of - ICD9: V22.2, ICD10: Z3A.37 - Labor precautions and kick counts reviewed - GBS today Uterine size-date discrepancy, third trimester - ICD9: 649.63, ICD10: O26.843 - S<D - 12 lb TWG Anemia during in third trimester - ICD9: 648.23, ICD10: O99.013 - Mild, 10.6 with 28 week labs - Taking iron supplement PO Penicillin allergy - ICD9: V14.0, ICD10: Z88.0 - Hives with Dicloxacillin - Concerned as she had itching with vancomycin - GBS today, plan to be determined if positive Gladys Richardson APRN.DISK OPERATOR documented in this encounter [facility] 11-06-2023 Belinda Russo Ma - 11/06/2023 8:31 AM EST SEQUENTIAL SCREENINGS The [facility] offers sequential screenings for women who are interested in screenings for chromosomal abnormalities and certain defects during a . The sequential screen combines ultrasound and blood tests to determine the risk of chromosomal abnormalities, including Down's Syndrome (Trisomy 21) and Trisomy 18, as well as open neural tube defects including spina bifida. Ultrasound examination is performed between 11 weeks and 13 weeks gestational age. Blood tests are drawn after the ultrasound and again later in the between 15 and 21 weeks gestational age. Please let your physician know if you are interested in this testing. It will require an appointment with our dairy technician. This is not an ultrasound performed by a physician in our office during a routine visit. SIGNS AND SYMPTOMS OF LABOR 1. Contractions every 10 minutes or more often 2. Clear, pink, or brownish fluid (water) leaking from vagina 3. Feeling that baby is pushing down, pressure 4. Low, dull backache 5. Cramps that feel like a period 6. Cramps with or without diarrhea If you notice any of the above symptoms, contact our office at [phone] and ask to speak with a nurse. After hours, you can call doctors registry at [phone] OR call [facility] at [phone] and ask to have the doctor technology applications consultant paged. If you consider this an emergency, dial 9--1 or go to your nearest emergency department. NEED HELP? Are you dealing with a violent or abusive relationship? Are you a victim of rape or sexual assult? Call [facility] ([place]) 24 hour Crisis Hotline: 280.711.4833 or 542-428-0560. MANUAL Your Guide to a Healthy manual is now on-line. Visit [email or web address] to download your free copy documented in this encounter [facility] 09-03-2023 Miscellaneous Notes Formattin g of this note might be different from the original. S: Ariane is a 32 year old female who presents at 27w6d for a routine visit. Feeling movement. Denies headache, visual changes, chest pain, shortness of breath, vaginal bleeding, leakage of fluid, or dysuria. Feeling well, no complaints. O: See flow sheet Gen: No apparent distress Abd: Gravid, nontender, S<D ASSESSMENT/PLAN: Encounter for supervision of other normal in third trimester - ICD9: V22.1, ICD10: Z34.83 (primary diagnosis) - 27 weeks gestation of - ICD9: V22.2, ICD10: Z3A.27 - 1 hour GCT, CBC, and RPR today - Considering TDAP, but declines right now - LARC form reviewed and signed. Patient declines. - Depression screen negative - Opioid screen negative - plan form discussed and given to patient. - PTL precautions and kick counts reviewed - RTO- 2 weeks or sooner if needed Rh negative state in antepartum period - ICD9: 646.83, ICD10: O26.899, Z67.91 - Type and screen - Rhogam today Uterine size-date discrepancy, third trimester - ICD9: 649.63, ICD10: O26.843 - S < D - Consider growth at 32 weeks RTO in 2 weeks or sooner as needed. Gladsy Richardson APRN.DISK OPERATOR documented in this encounter [facility] 09-03-2023 Instructions Carlos Byrne MA - 09/03/2023 2:03 PM EST SEQUENTIAL SCREENINGS The [facility] offers sequential screenings for women who are interested in screenings for chromosomal abnormalities and certain defects during a . The sequential screen combines ultrasound and blood tests to determine the risk of chromosomal abnormalities, including Down's Syndrome (Trisomy 21) and Trisomy 18, as well as open neural tube defects including spina bifida. Ultrasound examination is performed between 11 weeks and 13 weeks gestational age. Blood tests are drawn after the ultrasound and again later in the between 15 and 21 weeks gestational age. Please let your physician know if you are interested in this testing. It will require an appointment with our dairy technician. This is not an ultrasound performed by a physician in our office during a routine visit. SIGNS AND SYMPTOMS OF LABOR 1. Contractions every 10 minutes or more often 2. Clear, pink, or brownish fluid (water) leaking from vagina 3. Feeling that baby is pushing down, pressure 4. Low, dull backache 5. Cramps that feel like a period 6. Cramps with or without diarrhea If you notice any of the above symptoms, contact our office at [phone] and ask to speak with a nurse. After hours, you can call [facility] at [phone] OR call [facility] at [phone] and ask to have the doctor technology applications consultant paged. If you consider this an emergency, dial 9-1- or go to your nearest emergency department. NEED HELP? Are you dealing with a violent or abusive relationship? Are you a victim of rape or sexual assult? Call [facility] ([place]) 24 hour Crisis Hotline: 296.916.6701 or 154-206-4133. MANUAL Your Guide to a Healthy manual is now on-line. Visit [email or web address] to download your free copy documented in this encounter [facility] 08-05-2023 Miscellaneous Notes Formattin g of this note might be different from the original. DEVANG-S: Ariane Bañuelos is a 32 year old female who presents at 23w5d with SERENA:11/27/2023, by Ultrasound Gestational for a routine visit. Good FM. Denies headache, visual changes, chest pain, shortness of breath, vaginal bleeding, leakage of fluid, or dysuria. Feeling well, no complaints. 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 O: See flow sheet Gen: No apparent distress Abd: Gravid, nontender ASSESSMENT/PLAN: 1. 23 weeks gestation of 2. Grand multiparity with current in second trimester - P: 1) PTL precautions reviewed and when to call 2) RTO in 4 weeks 3) Continue daily exercise as tolerated. Demonstrated body mechanics: squat down to toddlers level or have them crawl up to pt. Change positions more slowly, shift position to adjust lie to decrease discomfort. 4) RTO 4 weeks, 28 week labs, Rhogam Ramo Velasco APRN.CNM documented in this encounter [facility] 08-05-2023 Feroz Berumen Cma - 08/05/2023 3:22 PM EST SEQUENTIAL SCREENINGS The [facility] offers sequential screenings for women who are interested in screenings for chromosomal abnormalities and certain defects during a . The sequential screen combines ultrasound and blood tests to determine the risk of chromosomal abnormalities, including Down's Syndrome (Trisomy 21) and Trisomy 18, as well as open neural tube defects including spina bifida. Ultrasound examination is performed between 11 weeks and 13 weeks gestational age. Blood tests are drawn after the ultrasound and again later in the between 15 and 21 weeks gestational age. Please let your physician know if you are interested in this testing. It will require an appointment with our dairy technician. This is not an ultrasound performed by a physician in our office during a routine visit. SIGNS AND SYMPTOMS OF LABOR 1. Contractions every 10 minutes or more often 2. Clear, pink, or brownish fluid (water) leaking from vagina 3. Feeling that baby is pushing down, pressure 4. Low, dull backache 5. Cramps that feel like a period 6. Cramps with or without diarrhea If you notice any of the above symptoms, contact our office at [phone] and ask to speak with a nurse. After hours, you can call doctors registry at [phone] OR call [facility] at [phone] and ask to have the doctor technology applications consultant paged. If you consider this an emergency, dial 9-1-7 or go to your nearest emergency department. NEED HELP? Are you dealing with a violent or abusive relationship? Are you a victim of rape or sexual assult? Call [facility] ([place]) 24 hour Crisis Hotline: 292.749.3673 or 110-506-5280. MANUAL Your Guide to a Healthy manual is now on-line. Visit [email or web address] to download your free copy documented in this encounter [facility] 07-07-2023 Miscellaneous Notes Formattin g of this note might be different from the original. DM- Pt doing well today. Denies Vaginal Bleeding, Leaking fluid, or contractions. Pt reports good movement. Anatomy us pending today. Gender surprise. RTO 4 wks. Abel Griffin MD documented in this encounter [facility] 07-07-2023 Instructions Belle Reina Ma - 07/07/2023 2:41 PM EDT SEQUENTIAL SCREENINGS The [facility] offers sequential screenings for women who are interested in screenings for chromosomal abnormalities and certain defects during a . The sequential screen combines ultrasound and blood tests to determine the risk of chromosomal abnormalities, including Down's Syndrome (Trisomy 21) and Trisomy 18, as well as open neural tube defects including spina bifida. Ultrasound examination is performed between 11 weeks and 13 weeks gestational age. Blood tests are drawn after the ultrasound and again later in the between 15 and 21 weeks gestational age. Please let your physician know if you are interested in this testing. It will require an appointment with our dairy technician. This is not an ultrasound performed by a physician in our office during a routine visit. SIGNS AND SYMPTOMS OF LABOR 1. Contractions every 10 minutes or more often 2. Clear, pink, or brownish fluid (water) leaking from vagina 3. Feeling that baby is pushing down, pressure 4. Low, dull backache 5. Cramps that feel like a period 6. Cramps with or without diarrhea If you notice any of the above symptoms, contact our office at [phone] and ask to speak with a nurse. After hours, you can call doctors registry at [phone] OR call [facility] at [phone] and ask to have the doctor technology applications consultant paged. If you consider this an emergency, dial 9-6-2 or go to your nearest emergency department. NEED HELP? Are you dealing with a violent or abusive relationship? Are you a victim of rape or sexual assult? Call [facility] ([place]) 24 hour Crisis Hotline: 848.397.9042 or 398-427-7310. MANUAL Your Guide to a Healthy manual is now on-line. Visit [email or web address] to download your free copy documented in this encounter [facility] 06-08-2023 Note HNO ID: [id number] Author: Perla Cevallos APRN.YOSELYN Service: ? Author Type: Nurse Practitioner Type: Progress Notes Filed: 06/08/2023 2:57 PM Note Text: INITIAL OB ASSESSMENT OB Provider: Perla Cevallos APRN, CNP HPI: Ariane is a 32 year old White here to establish Obstetrical Care. No LMP recorded. Patient is . from OB Dating Form. Cycles regular was planned Complaints: None OB History T7 L7 SAB2 IAB0 Ectopic0 Multiple0 Live Births7 Previous history: Prior : never History of 4th degree laceration: No History of shoulder dystocia: No History of Hypertensive disorders including pre-eclampsia, chronic hypertension or gestational hypertension: No History of gestational diabetes: No Patient's Risk Screening for delivery: Have you had a prior zapata between 20w and 36w6d?: No MEDICAL/PSYCHOSOCIAL HISTORY: History of hemorrhage or bleeding concerns: No Thyroid Disease: No History of chronic hypertension: No History of pre-existing diabetes: No No results found for: ABORHD BMI 24.23 kg/(m2) History of abnormal pap: No Prior treatment for cervical dysplasia: none. History of STDs: None Tobacco use: No Caffeine use: No Drug use: No Alcohol use: No Multivitamin with Folic acid: Yes Restorationist or heritage: No Would refuse blood transfusion if medically necessary: No Are you currently employed? No Do you have any history of depression, anxiety, PTSD, eating disorders or other mood problems: No Do you have any safety concerns or history of traumatic events that you would like to discuss with your provider: No SDOH Screening: How often does this describe you? I don't have enough money to pay my bills: Never Within the past 12 months, have you worried that your food would run out before you had money to buy more: Never In the past 12 months, has lack of reliable transportation kept you from going to medical appointments or work, or from keeping things needed for daily living: Never In the past 12 months, have you had any concerns about having a place to live, or about the condition or quality of your housing: Never Are there any cultural or spiritual needs we should be aware of: No Depression/Anxiety Screening: denies symptoms of depression. OB Depression and Anxiety Screening- This Encounter (since 06/07/2023) Over the past 2 weeks have you felt down, depressed, or hopeless? Negative Over the past two weeks, have you felt little interest or pleasure in doing things?? Negative Feeling nervous, anxious or on edge 0-Not at all Not being able to stop or control worrying 0-Not al all Anxiety Pre-Screening Total (If >/= 3 additional questions will be reviewed) 0 Genetic Screening: Partner present: No Patient verbalized knowledge of partner family health history: No Do you or your partner have any personal or family history of defects not previously discussed: No Do you have history of a complicated by anomaly, genetic condition, or demise: No ACOG Recommended Screening Screening for early gestational diabetes testing: Criteria for early testing requires elevated BMI plus one other risk factor: BMI 24.23 kg/(m2) (risk factor if > than 25 or 23 in Americans) Additional risk factors: None She does not meet ACOG criteria for early gestational DM screening. Screening for low dose aspirin use for the prevention of pre-eclampsia: Low dose aspirin should be considered if the patient has one high or two moderate risk factors: High risk factors: None Moderate risk ractors: None She does not meet criteria for low dose ASA Marital Status: Partner: Name: Surya Age: 34 Occupation: [employer], salesman Gender: Male History of STDs: None History reviewed. No pertinent past medical history. PAST SURGICAL HISTORY Procedure Laterality Date DANDC, DIAG AND/OR THERAPEUTIC 2020 Current Outpatient Medications Medication Sig Dispense Refill PNV no.95/ferrous fum/folic ac ( ORAL) Take by mouth. Tdbuwddussyaf-Oowpjyzeghoow-PM (TYLENOL COLD HEAD CONGEST SEVR) 5-325-200 mg tab Take 1 Dose by mouth as directed. (Patient not taking: Reported on 06/08/2023) 30 tablet 0 No current facility-administered medications for this visit. Allergies As of Date: 06/08/2023 Allergen Noted Reaction PENICILLINS 03/09/2018 Hives SEPTRA [SULFAMETHOXAZOLE-TRIMETHO* Unknown Fully Assessed 06/08/2023 Does patient have penicillin allergy: Yes, plan for allergy testing. REVIEW OF SYSTEMS: GENERAL: Negative for: Fever or Chills HEENT: Negative for: Headache, Impaired Vision, Ringing in Ears, Nosebleeds NECK: Negative for: Swelling, Pain, Stiffness RESPIRATORY: Negative for: Cough, Shortness of breath, Wheezing GASTROINTESTINAL: Positive for: Constipation MUSCULOSKELETAL: Negative fo (more content not included)... [facility] 06-08-2023 History of Presen t illness Narrative INITIAL OB ASSESSMENT OB Provider: Perla Cevallos APRN DISK OPERATOR HPI: Ariane is a 32 year old White here to establish Obstetrical Care. No LMP recorded. Patient is . from OB Dating Form. Cycles regular was planned Complaints: None OB History T7 L7 SAB2 IAB0 Ectopic0 Multiple0 Live Births7 Previous history: Prior : never History of 4th degree laceration: No History of shoulder dystocia: No History of Hypertensive disorders including pre-eclampsia, chronic hypertension or gestational hypertension: No History of gestational diabetes: No Patient's Risk Screening for delivery: Have you had a prior zapata between 20w and 36w6d?: No MEDICAL/PSYCHOSOCIAL HISTORY: History of hemorrhage or bleeding concerns: No Thyroid Disease: No History of chronic hypertension: No History of pre-existing diabetes: No No results found for: ABORHD BMI 24.23 kg/(m^2) History of abnormal pap: No Prior treatment for cervical dysplasia: none. History of STDs: None Tobacco use: No Caffeine use: No Drug use: No Alcohol use: No Multivitamin with Folic acid: Yes Restorationist or heritage: No Would refuse blood transfusion if medically necessary: No Are you currently employed? No Do you have any history of depression, anxiety, PTSD, eating disorders or other mood problems: No Do you have any safety concerns or history of traumatic events that you would like to discuss with your provider: No SDOH Screening: How often does this describe you? I don't have enough money to pay my bills: Never Within the past 12 months, have you worried that your food would run out before you had money to buy more: Never In the past 12 months, has lack of reliable transportation kept you from going to medical appointments or work, or from keeping things needed for daily living: Never In the past 12 months, have you had any concerns about having a place to live, or about the condition or quality of your housing: Never Are there any cultural or spiritual needs we should be aware of: No Depression/Anxiety Screening: denies symptoms of depression. OB Depression and Anxiety Screening- This Encounter (since 06/07/2023) Over the past 2 weeks have you felt down, depressed, or hopeless? Negative Over the past two weeks, have you felt little interest or pleasure in doing things? Negative Feeling nervous, anxious or on edge 0-Not at all Not being able to stop or control worrying 0-Not al all Anxiety Pre-Screening Total (If >/= 3 additional questions will be reviewed) 0 Genetic Screening: Partner present: No Patient verbalized knowledge of partner family health history: No Do you or your partner have any personal or family history of defects not previously discussed: No Do you have history of a complicated by anomaly, genetic condition, or demise: No ACOG Recommended Screening Screening for early gestational diabetes testing: Criteria for early testing requires elevated BMI plus one other risk factor: BMI 24.23 kg/(m^2) (risk factor if > than 25 or 23 in Americans) Additional risk factors: None She does not meet ACOG criteria for early gestational DM screening. Screening for low dose aspirin use for the prevention of pre-eclampsia: Low dose aspirin should be considered if the patient has one high or two moderate risk factors: High risk factors: None Moderate risk ractors: None She does not meet criteria for low dose ASA Marital Status: Partner: Name: Surya Age: 34 Occupation: [employer], salesman Gender: Male History of STDs: None History reviewed. No pertinent past medical history. PAST SURGICAL HISTORY Procedure Laterality Date D&C, DIAG AND/OR THERAPEUTIC 2020 Current Outpatient Medications Medication Sig Dispense Refill PNV no.95/ferrous fum/folic ac ( ORAL) Take by mouth. Prwsivngnyqnk-Xlpyhhmgqdgem-FY (TYLENOL COLD HEAD CONGEST SEVR) 5-325-200 mg tab Take 1 Dose by mouth as directed. (Patient not taking: Reported on 06/08/2023) 30 tablet 0 No current facility-administered medications for this visit. Allergies As of Date: 06/08/2023 Allergen Noted Reaction PENICILLINS 03/09/2018 Hives SEPTRA [SULFAMETHOXAZOLE-TRIMETHO* Unknown Fully Assessed 06/08/2023 Does patient have penicillin allergy: Yes, plan for allergy testing. REVIEW OF SYSTEMS: GENERAL: Negative for: Fever or Chills HEENT: Negative for: Headache, Impaired Vision, Ringing in Ears, Nosebleeds NECK: Negative for: Swelling, Pain, Stiffness RESPIRATORY: Negative for: Cough, Shortness of breath, Wheezing GASTROINTESTINAL: Positive for: Constipation MUSCULOSKELETAL: Negative for: Muscle or joint pain, stiffness, Joint swelling NEUROLOGIC/PSYCHIATRIC: Negative for: Weakness, Paralysis, Numbness, Tingling, Tremor, Anxiety, Depression, Memory loss SKIN: Negative for: Rash, Itching GENITOURINARY: Negative for: vaginal itching, vaginal discharge, hematuria or dysuria PHYSICAL EXAM: BP 98/60 Ht 5' 3 (1.60m) Wt 136 lb 12.8 oz (62.1kg) BMI 24.24 kg/(m^2). GENERAL: pleasant in no apparent distress CHEST: Normal inspiratory effort NEURO: alert and oriented x3,exam grossly non-focal Limited OB ultrasound exam: not performed OB Risk Screening: Completed, no positive findings documented. ASSESSMENT: 32 year old at 15w3d wks gestational age PLAN: 1) Patient oriented to practice. Patient given new OB orientation folder. Discussed nutrition, folic acid supplementation, dietary guidelines, exercise, smoking, alcohol, caffeine, and drug use. Discussed gestational weight gain guidelines. Discussed routine OB labs including STD/HIV. Discussed how to access Your guide to a health and the Service Station Cashier. Patient has penicillin allergy, plan for allergy testing. Reviewed midwifery and community education specialist services that are available. 2) no previous complications 3) transfer from [place] Follow up in 4 weeks or sooner prn. Perla Cevallos APRN.YOSELYN OB point of care ultrasound was performed. See imaging tab for details. Wendy Pineda LPN documented in this encounter [facility] 06-08-2023 Feroz Berumen Cma - 06/08/2023 1:15 PM EDT Please select the following link to access the [facility] Your Guide to a Healthy . [email or web address] documented in this encounter [facility] 06-08-2023 Note HNO ID: [id number] Author: Wendy Pineda LPN Service: ? Author Type: ? Type: Progress Notes Filed: 06/08/2023 2:57 PM Note Text: OB point of care ultrasound was performed. See imaging tab for details. Wendy Pineda LPN [facility] 06-01-2023 Note HNO ID: [id number] Author: Gricelda Hernadez RN Service: ? Author Type: ? Type: Progress Notes Filed: 06/01/2023 3:07 PM Note Text: Received outside medical records from [place] [employer]. Chart updated. Sent for scanning. Gricelda Hernadez RN [facility] 06-01-2023 History of Presen t illness Narrative Received outside medical records from [place] [employer]. Chart updated. Sent for scanning. Gricelda Hernadez RN documented in this encounter [facility] [place] [facility] Diagnosis Grand multiparity with current in second trimester- Primary with care elsewhere in second trimester 19 weeks gestation of state, incidental [facility] [place] [facility] Diagnosis 23 weeks gestation of - Primary state, incidental Grand multiparity with current in second trimester documented [facility] [place] [facility]* Diagnosis 15 weeks gestation of state, incidental [facility] [place] [facility] Diagnosis Encounter for supervision of other normal in third trimester- Primary 27 weeks gestation of state, incidental Grand multiparity with current in third trimester Rh negative state in antepartum period Rhesus isoimmunization affecting management of mother, antepartum condition Uterine size-date discrepancy, third trimester documented in this encounter [facility] [place] [facility] Diagnosis Encounter for supervision of other normal in third trimester- Primary Anemia during in third trimester 37 weeks gestation of state, incidental Penicillin allergy Personal history of allergy to penicillin Uterine size-date discrepancy, third trimester [facility] Encounter for ultrasound to check growth- Primary Encounter for routine screening for malformation using ultrasonics Uterine size-date discrepancy, third trimester 37 weeks gestation of state, incidental [facility] [place] [facility] Diagnosis Encounter for supervision of other normal in third trimester- Primary 37 weeks gestation of state, incidental Uterine size-date discrepancy, third trimester [facility] [place] [facility] Diagnosis 38 weeks gestation of - Primary state, incidental [facility] [place] [facility] Diagnosis Encounter for supervision of other normal in third trimester- Primary Anemia during in third trimester 39 weeks gestation of state, incidental documented in this encounter [facility] for referral (narrative)* Diagnostic Procedure Only (Routine) - Authorized Specialty Diagnoses / Procedures Referred By Christiano lua Referred To Contact [facility] Diagnoses 15 weeks gestation of Procedures OBSTETRIC ULTRASOUND WHI US PREG UTERUS AFTER 1ST TRIMEST GESTATION Perla Cevallos APRN.CNP [address] [place] [address] [facility] [address] [place] [address] Referral ID Status Reason Start Date Expiration Date Visits Requested Visits Authorized [id number] Authorized Auto-Generat ed Referral 06/08/2023 06/07/2024 1 1 [facility] for visit Narrative* Diagnostic Procedure Only (Routine) - Closed Specialty Diagnoses / Procedures Referred By Christiano lua Referred To Contact [facility] Diagnoses 15 weeks gestation of Procedures OBSTETRIC ULTRASOUND WHI US PREG UTERUS AFTER 1ST TRIMEST GESTATION Perla Cevallos APRN.CNP [address] [place] [address] [facility] [place] [address] Referral ID Status Reason Start Date Expiration Date V isits Requested Visits Authorized [id number] Closed Auto-Generate d Referral 06/08/2023 06/07/2024 1 1 [facility] Summary Purpose Family History No Family History Records Found Advance Directives No Advanced Directives Records Found Additional Source Comments Source Comments (unrecognize d section and content) In the event this informatio n is protected by the Federal Confidentiality of Alcohol and Drug Abuse Patient Records regulations: The Federal rules restrict any use of the information to criminally investigate or prosecute any alcohol or drug abuse patient.[facility] the event this information is protected by the Federal Confidentiality of Alcohol and Drug Abuse Patient Records regulations: The Federal rules restrict any use of the information to criminally investigate or prosecute any alcohol or drug abuse patient.[facility] the event this information is protected by the Federal Confidentiality of Alcohol and Drug Abuse Patient Records regulations: The Federal rules restrict any use of the information to criminally investigate or prosecute any alcohol or drug abuse patient.[facility] the event this information is protected by the Federal Confidentiality of Alcohol and Drug Abuse Patient Records regulations: The Federal rules restrict any use of the information to criminally investigate or prosecute any alcohol or drug abuse patient.[facility] the event this information is protected by the Federal Confidentiality of Alcohol and Drug Abuse Patient Records regulations: The Federal rules restrict any use of the information to criminally investigate or prosecute any alcohol or drug abuse patient.[facility] the event this information is protected by the Federal Confidentiality of Alcohol and Drug Abuse Patient Records regulations: The Federal rules restrict any use of the information to criminally investigate or prosecute any alcohol or drug abuse patient.[facility] the event this information is protected by the Federal Confidentiality of Alcohol and Drug Abuse Patient Records regulations: The Federal rules restrict any use of the information to criminally investigate or prosecute any alcohol or drug abuse patient.[facility] the event this information is protected by the Federal Confidentiality of Alcohol and Drug Abuse Patient Records regulations: The Federal rules restrict any use of the information to criminally investigate or prosecute any alcohol or drug abuse patient.[facility] the event this information is protected by the Federal Confidentiality of Alcohol and Drug Abuse Patient Records regulations: The Federal rules restrict any use of the information to criminally investigate or prosecute any alcohol or drug abuse patient.[facility] the event this information is protected by the Federal Confidentiality of Alcohol and Drug Abuse Patient Records regulations: The Federal rules restrict any use of the information to criminally investigate or prosecute any alcohol or drug abuse patient.[facility] the event this information is protected by the Federal Confidentiality of Alcohol and Drug Abuse Patient Records regulations: The Federal rules restrict any use of the information to criminally investigate or prosecute any alcohol or drug abuse patient.[facility] the event this information is protected by the Federal Confidentiality of Alcohol and Drug Abuse Patient Records regulations: The Federal rules restrict any use of the information to criminally investigate or prosecute any alcohol or drug abuse patient.[facility] Reason for Visit (unrecogniz ed section and content) Reason Comments Care Reason Onset Date Comments Care 07/07/2023 Reason Onset Date Comments Care 08/05/2023 Reason Onset Date Comments Care 09/03/2023 Reason Onset Date Comments Care 11/06/2023 Reason Comments US Specialty Diagnoses / Procedures Referred By Christiano t Referred To Contact [facility] Diagnoses 34 weeks gestation of Uterine size-date discrepancy, third trimester Procedures OBSTETRIC ULTRASOUND WHI US PREG UTERUS AFTER 1ST TRIMEST GESTATION Reese Lwas MD [address] [place] [address] [facility] [address] [place] [address] Referral ID Status Reason Start Date Expiration Date V isits Requested Visits Authorized [id number] Closed Auto-Generate d Referral 10/22/2023 10/21/2024 1 1 Reason Onset Date Comments Care 11/12/2023 Reason Onset Date Comments Population Health Navigation Outreach 11/13/2023 OB/PEDS Reason Onset Date Comments Care 11/19/2023 Reason Onset Date Comments Care 11/24/2023 INFORMATION SOURCE (unrecogn ized section and content) FOR RECORDS PERTAINING TO PATIENTS WHO ARE OR HAVE BEEN ENROLLED IN A CHEMICAL DEPENDENCY/SUBSTANCEABUSE PROGRAM, SOME INFORMATION MAY BE OMITTED. This clinical summary was aggregated from multiple sources. Caution should be exercised in using it in the provision of clinical care. This summary normalizes information from multiple sources, and as a consequence, information in this document may materially change the coding, format and clinical context of patient data. In addition, data may be omitted in some cases. CLINICAL DECISIONS SHOULD BE BASED ON THE PRIMARY CLINICAL RECORDS. [facility] [employer] [facility]. provides no warranty or guarantee of the accuracy or completeness of information in this document.
--- OUTSIDE RECORDS SUMMARY | 2023-11-28 17:34 | XMS RPT_ITS | CCD ---
Author Name Unknown Address [address] [place] [address] Organization [facility] Care Team Providers Care Extruder Operator Name Role Phone Unavailable Primary Care Provider [...] Penicillins; Translations: [PENICILLINS] Drug [facility] Work Phone: (14 sources) Sulfamethoxazole / Trimethoprim; Translations: [SULFAMETHOXAZOLE-TR IMETHOPRIM] Drug Allergy 03-09-20 18 [facility] Work Phone: Medications Completed/Discontinued Medications Medication [...] 67.77 kg Reese Laws MD Work Phone: [facility] 11-24-2023 10:40-0500 Diastolic blood pressure 64 mm[Hg] Reese Laws MD Work Phone: [facility] 11-24-2023 10:40-0500 Systolic blood pressure 108 mm[Hg] Reese Laws MD Work Phone: [facility] 11-19-2023 16:07-0500 Body weight 67.13 kg Sis Loya MD Work Phone: [facility] 11-19-2023 16:07-0500 Diastolic blood pressure 62 mm[Hg] Sis Loya MD Work Phone: [facility] 11-19-2023 16:07-0500 Systolic blood pressure 100 mm[Hg] Sis Loya MD Work Phone: [facility] 11-12-2023 13:49-0500 Body weight 67.5 kg Gladys Haury VETERINARY LIVESTOCK INSPECTOR.INFORMATION RESOURCE CONSULTANT Work Phone: [facility] 11-12-2023 13:49-0500 Diastolic blood pressure 60 mm[Hg] Gladys Haury VETERINARY LIVESTOCK INSPECTOR.INFORMATION RESOURCE CONSULTANT Work Phone: [facility] 11-12-2023 13:49-0500 Systolic blood pressure 100 mm[Hg] Gladys Haury VETERINARY LIVESTOCK INSPECTOR.INFORMATION RESOURCE CONSULTANT Work Phone: [facility] 11-06-2023 08:30-0500 Body weight 67.13 kg Gladys Haury VETERINARY LIVESTOCK INSPECTOR.INFORMATION RESOURCE CONSULTANT Work Phone: [facility] 11-06-2023 08:30-0500 Diastolic blood pressure 62 mm[Hg] Gladys Haury VETERINARY LIVESTOCK INSPECTOR.INFORMATION RESOURCE CONSULTANT Work Phone: [facility] 11-06-2023 08:30-0500 Systolic blood pressure 112 mm[Hg] Gladys Haury VETERINARY LIVESTOCK INSPECTOR.INFORMATION RESOURCE CONSULTANT Work Phone: [facility] 09-03-2023 14:16-0500 Body weight 65.77 kg Gladys Haury VETERINARY LIVESTOCK INSPECTOR.INFORMATION RESOURCE CONSULTANT Work Phone: [facility] 09-03-2023 14:16-0500 Diastolic blood pressure 64 mm[Hg] Gladys Haury VETERINARY LIVESTOCK INSPECTOR.INFORMATION RESOURCE CONSULTANT Work Phone: [facility] 09-03-2023 14:16-0500 Systolic blood pressure 104 mm[Hg] Gladys Haury VETERINARY LIVESTOCK INSPECTOR.INFORMATION RESOURCE CONSULTANT Work Phone: [facility] 08-05-2023 15:24-0500 Body weight 64.77 kg Ramo Velasco VETERINARY LIVESTOCK INSPECTOR.CNM Work Phone: [facility] 08-05-2023 15:24-0500 Diastolic blood pressure 64 mm[Hg] Ramo Velasco VETERINARY LIVESTOCK INSPECTOR.CNM Work Phone: [facility] 08-05-2023 15:24-0500 Systolic blood pressure 108 mm[Hg] Ramo Velasco VETERINARY LIVESTOCK INSPECTOR.CNM Work Phone: [facility] 07-07-2023 15:18-0400 Body weight 62.6 kg Abel Corona MD Work Phone: [facility] 07-07-2023 15:18-0400 Diastolic blood pressure 58 mm[Hg] Abel Corona MD Work Phone: [facility] 07-07-2023 15:18-0400 Systolic blood pressure 98 mm[Hg] Abel Corona MD Work Phone: [facility] 06-08-2023 13:20-0400 Body height 160 cm Perla Milton VETERINARY LIVESTOCK INSPECTOR.INFORMATION RESOURCE CONSULTANT Work Phone: [facility] 06-08-2023 13:20-0400 Body weight 62.05 kg Perla Ban VETERINARY LIVESTOCK INSPECTOR.INFORMATION RESOURCE CONSULTANT Work Phone: [facility] 06-08-2023 13:20-0400 Diastolic blood pressure 60 mm[Hg] Perla Milton VETERINARY LIVESTOCK INSPECTOR.INFORMATION RESOURCE CONSULTANT Work Phone: [facility] 06-08-2023 13:20-0400 Systolic blood pressure 98 mm[Hg] Perla Ban VETERINARY LIVESTOCK INSPECTOR.INFORMATION RESOURCE CONSULTANT Work Phone: [facility] Encounters Encounter Date Encounter Type Care Provider Facility Start: 11-24-2023 End: 11-24-2023 Patient encounter procedure Reese Laws MD Work Phone: OB/Gynecology Procedures Date Procedure Procedure Detail Performing Clinician Start: 11-24-2023 URINE OB DIP B/O Reese Laws MD Work Phone: Start: 11-19-2023 URINE OB DIP B/O Sis pavon MD Work Phone: Start: 11-12-2023 URINE OB DIP B/O Gladys Richardson VETERINARY LIVESTOCK INSPECTOR.INFORMATION RESOURCE CONSULTANT Work Phone: Start: 11-06-2023 URINE OB DIP B/O Gladys Richardson VETERINARY LIVESTOCK INSPECTOR.INFORMATION RESOURCE CONSULTANT Work Phone: Start: 11-06-2023 Us preg uterus after 1st trimest 09/21 gestation Reese Laws MD Work Phone: Start: 09-03-2023 Antibody screen GLADYS Cee PEDERSEN Plan of Treatment Date Care Activity Detail Author Start: 05-06-2028 PAP TESTING PAP TESTING [facility] Start: 05-06-2028 Screening for malignant neoplasm of cervix Pap Testing [facility] Start: 10-02-2023 RSV Vaccine (1 - Risk 1-dose series) RSV Vaccine (1 - Risk 1-dose series) [facility] Start: 09-21-2023 Depression Assessment Depression Assessment [facility] Start: 08-05-2023 End: 11-04-2023 CBC W Auto Differential panel - Blood CBC + DIFF Lab Routine 23 weeks gestation of Grand multiparity with current in second trimester Expected: 08/05/2023, Expires: 11/04/2023 [facility] Work Phone: Immunizations Immunization Date Immunization Notes Care Provider Koby light 09-03-2023 RHO(D) immune globul in- IV or IM Gladys Richardson VETERINARY LIVESTOCK INSPECTOR.INFORMATION RESOURCE CONSULTANT Work Phone: [facility] Work Phone: Payers Date Payer Category Payer Unknown MMO MMO [employer] PPO [id number] 2021-Present [phone] [address] [place] [address] PPO [id number] 2021 Unknown [id number] Social History Date Type Detail Facility Start: 03-09-2018 End: 06-08-2023 Tobacco smoking status NHIS Never smoked tobacco [facility] Work Phone: Start: 03-09-2018 End: 06-08-2023 Tobacco use and exposure Smokeless tobacco non-user [facility] Work Phone: Start: 06-01-2023 End: 09-03-2023 History of Social function [facility] Start: 06-01-2023 End: 09-03-2023 Tobacco use panel [facility] National Score (1-100), lower number is lower risk Not on file [facility] Start: 03-06-2023 [facility] Start: 1990 Sex Assigned At Not on file [facility] Start: 06-08-2023 End: 11-24-2023 Alcohol intake Lifetime non-drinker (finding) [facility] Clinical Notes 06-01-2023 to 11-24-2023 Quick Notes [...] Reese Laws MD documented in this encounter [facility] 11-24-2023 Instructions Feroz Liu MA - 11/24/2023 10:38 AM EST SEQUENTIAL SCREENINGS The [facility] offers sequential screenings for women who are [...] It will require an appointment with our military administrative technician. This is not an ultrasound performed [...] the above symptoms, contact our office at [phone] and ask to speak with a nurse. After hours, you can call doctors registry at [phone] OR call [facility] at [phone] and ask to have the doctor subscription agent paged. If you consider this an emergency, dial 9--3 or go to your nearest emergency department. NEED HELP? Are you dealing with a violent or abusive relationship? Are you a victim of rape or sexual assult? Call [facility] ([place]) 24 hour Crisis Hotline: 255.767.6167 or 319-602-9348. MANUAL Your Guide to a Healthy manual is now on-line. Visit [email or web address] [email or web address] to download your free copy documented in this encounter [facility] 11-19-2023 Miscellaneous Notes Formattin g of this note might be different from the original. SW- Some irregular ctx's with standing and walking. No vb, lof. Good FM. PE: Gen- NAD, well appearing Abd- Soft, gravid, NT See flowsheet A/p 38 wk gestation - Reviewed labor precautions - RTO 1 wk Sis Loya DO documented in this encounter [facility] 11-19-2023 Ana Villa LPN - 11/19/2023 3:59 PM EST SEQUENTIAL SCREENINGS The [facility] offers sequential screenings for women who are [...] It will require an appointment with our military administrative technician. This is not an ultrasound performed [...] the above symptoms, contact our office at [phone] and ask to speak with a nurse. After hours, you can call doctors registry at [phone] OR call [facility] at [phone] and ask to have the doctor subscription agent paged. If you consider this an emergency, dial 9-1-0 or go to your nearest emergency department. NEED HELP? Are you dealing with a violent or abusive relationship? Are you a victim of rape or sexual assult? Call [facility] ([place]) 24 hour Crisis Hotline: 555.136.5286 or 803-967-5660. MANUAL Your Guide to a Healthy manual is now on-line. Visit [email or web address] [email or web address] to download your free copy documented in this encounter [facility] 11-13-2023 Note Patient Outreach (KIRILL SANCHEZ) ARIANE BAÑUELOS ([id number]) 1990 F Date Time Provider Department 11/13/23 [...] Date Reviewed: 11/12/2023 Reviewed by: Gladys Richardson APRN.INFORMATION RESOURCE CONSULTANT - Fully Assessed Reason for Visit: Population [...] Encounter Status:Closed by CARLOS ARELLANO on 11/13/23 [facility] 11-13-2023 Note HNO ID: [id number] Author: ?, ?, ? Service: ? Author [...] Carlos Sykes November 13, 2023 9:40 AM [facility] 11-13-2023 Note HNO ID: [id number] Author: ?, ?, ? Service: ? Author [...] Carlos Sykes November 13, 2023 9:38 AM [facility] 11-13-2023 History of Presen t illness Narrative POPULATION HEALTH NAVIGATION OUTREACH Action/FYI Patient called back and that she will be going with Dr. Lulu Zuh. Updated OB/PEDS OB/PEDS Patient Identified by Name [...] schedule this appointment? N/A Reason for Outreach [place] Payer: Payor: MMO / Plan: MMO SUPERMED [...] 2023 9:38 AM documented in this encounter [facility] 11-12-2023 Miscellaneous Notes Formattin g of this [...] week or sooner as needed. Gladys Richardson APRN.INFORMATION RESOURCE CONSULTANT documented in this encounter [facility] 11-12-2023 Instructions Carlos Byrne MA - 11/12/2023 1:44 PM EST SEQUENTIAL SCREENINGS The [facility] offers sequential screenings for women who are [...] It will require an appointment with our military administrative technician. This is not an ultrasound performed [...] the above symptoms, contact our office at [phone] and ask to speak with a nurse. After hours, you can call doctors registry at [phone] OR call [facility] at [phone] and ask to have the doctor subscription agent paged. If you consider this an emergency, dial -- or go to your nearest emergency department. NEED HELP? Are you dealing with a violent or abusive relationship? Are you a victim of rape or sexual assult? Call [facility] ([place]) 24 hour Crisis Hotline: 946.906.6683 or 275-801-6372. MANUAL Your Guide to a Healthy manual is now on-line. Visit [email or web address] [email or web address] to download your free copy documented in this encounter [facility] 11-06-2023 Miscellaneous Notes Formattin g of this [...] to be determined if positive Gladys Richardson APRN.INFORMATION RESOURCE CONSULTANT documented in this encounter [facility] 11-06-2023 Belinda Russo Ma - 11/06/2023 8:31 AM EST SEQUENTIAL SCREENINGS The [facility] offers sequential screenings for women who are [...] It will require an appointment with our military administrative technician. This is not an ultrasound performed [...] the above symptoms, contact our office at [phone] and ask to speak with a nurse. After hours, you can call doctors registry at [phone] OR call [facility] at [phone] and ask to have the doctor subscription agent paged. If you consider this an emergency, dial 9--1 or go to your nearest emergency department. NEED HELP? Are you dealing with a violent or abusive relationship? Are you a victim of rape or sexual assult? Call [facility] ([place]) 24 hour Crisis Hotline: 640.120.9402 or 197-892-1807. MANUAL Your Guide to a Healthy manual is now on-line. Visit [email or web address] [email or web address] to download your free copy documented in this encounter [facility] 09-03-2023 Miscellaneous Notes Formattin g of this [...] in 2 weeks or sooner as needed. Gladys Richardson APRN.INFORMATION RESOURCE CONSULTANT documented in this encounter [facility] 09-03-2023 Instructions Carlos Byrne MA - 09/03/2023 2:03 PM EST SEQUENTIAL SCREENINGS The [facility] offers sequential screenings for women who are [...] It will require an appointment with our military administrative technician. This is not an ultrasound performed [...] the above symptoms, contact our office at [phone] and ask to speak with a nurse. After hours, you can call [facility] at [phone] OR call [facility] at [phone] and ask to have the doctor subscription agent paged. If you consider this an emergency, dial 9-1-5 or go to your nearest emergency department. NEED HELP? Are you dealing with a violent or abusive relationship? Are you a victim of rape or sexual assult? Call [facility] ([place]) 24 hour Crisis Hotline: 608.836.3807 or 291-894-1944. MANUAL Your Guide to a Healthy manual is now on-line. 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 O: See flow sheet Gen: No [...] Ramo Velasco APRN.CNM documented in this encounter [facility] 08-05-2023 Feorz Berumen Cma - 08/05/2023 3:22 PM EST SEQUENTIAL SCREENINGS The [facility] offers sequential screenings for women who are [...] It will require an appointment with our military administrative technician. This is not an ultrasound performed [...] the above symptoms, contact our office at [phone] and ask to speak with a nurse. After hours, you can call doctors registry at [phone] OR call [facility] at [phone] and ask to have the doctor subscription agent paged. If you consider this an emergency, dial 9-1-0 or go to your nearest emergency department. NEED HELP? Are you dealing with a violent or abusive relationship? Are you a victim of rape or sexual assult? Call [facility] ([place]) 24 hour Crisis Hotline: 503.513.7227 or 473-587-7645. MANUAL Your Guide to a Healthy manual is now on-line. Visit [email or web address] [email or web address] to download your free copy documented in this encounter [facility] 07-07-2023 Miscellaneous Notes Formattin g of this note might be different from the original. DM- Pt doing well today. Denies Vaginal Bleeding, Leaking fluid, or contractions. Pt reports good movement. Anatomy us pending today. Gender surprise. RTO 4 wks. Abel Griffin MD documented in this encounter [facility] 07-07-2023 Instructions Belle Reina Ma - 07/07/2023 2:41 PM EDT SEQUENTIAL SCREENINGS The [facility] offers sequential screenings for women who are [...] It will require an appointment with our military administrative technician. This is not an ultrasound performed [...] the above symptoms, contact our office at [phone] and ask to speak with a nurse. After hours, you can call doctors registry at [phone] OR call [facility] at [phone] and ask to have the doctor subscription agent paged. If you consider this an emergency, dial 9-6-6 or go to your nearest emergency department. NEED HELP? Are you dealing with a violent or abusive relationship? Are you a victim of rape or sexual assult? Call [facility] ([place]) 24 hour Crisis Hotline: 617.148.4178 or 323-042-5598. MANUAL Your Guide to a Healthy manual is now on-line. Visit [email or web address] [email or web address] to download your free copy documented in this encounter [facility] 06-08-2023 Note HNO ID: [id number] Author: Perla Cevallos APRN.YOSELYN Service: ? Author [...] use: No Multivitamin with Folic acid: Yes Shinto or heritage: No Would refuse blood transfusion [...] fum/folic ac ( ORAL) Take by mouth. Qrbnypkzvegkg-Gmncmhcgdbmcu-HQ (TYLENOL COLD HEAD CONGEST SEVR) 5-325-200 mg [...] MUSCULOSKELETAL: Negative fo (more content not included)... [facility] 06-08-2023 History of Presen t illness Narrative INITIAL OB ASSESSMENT OB Provider: Perla Cevallos APRN INFORMATION RESOURCE CONSULTANT HPI: Ariane is a 32 year old [...] use: No Multivitamin with Folic acid: Yes Shinto or heritage: No Would refuse blood transfusion [...] fum/folic ac ( ORAL) Take by mouth. Wqxfekehpnmtl-Krmszekxtiyfh-KX (TYLENOL COLD HEAD CONGEST SEVR) 5-325-200 mg [...] Your guide to a health and the [place]. Patient has penicillin allergy, plan for allergy testing. Reviewed midwifery and hospitalist nocturnist physician services that are available. 2) no previous complications 3) transfer from [facility] Follow up in 4 weeks or sooner prn. Perla Cevallos APRN.YOSELYN OB point of care ultrasound was performed. See imaging tab for details. Wendy Pineda LPN documented in this encounter [facility] 06-08-2023 Feroz Berumen Cma - 06/08/2023 1:15 PM EDT Please select the following link to access the [facility] Your Guide to a Healthy . [email or web address] documented in this encounter [facility] 06-08-2023 Note HNO ID: [id number] Author: Wendy Pineda LPN Service: ? Author Type: ? Type: Progress Notes Filed: 06/08/2023 2:57 PM Note Text: OB point of care ultrasound was performed. See imaging tab for details. Wendy Pineda LPN [facility] 06-01-2023 Note HNO ID: [id number] Author: Gricelda Hernadez RN Service: ? Author Type: ? Type: Progress Notes Filed: 06/01/2023 3:07 PM Note Text: Received outside medical records from [facility] CLIENT EXPERIENCE MANAGER. Chart updated. Sent for scanning. Gricelda Hernadez RN [facility] 06-01-2023 History of Presen t illness Narrative Received outside medical records from [facility] CLIENT EXPERIENCE MANAGER. Chart updated. Sent for scanning. Gricelda Hernadez RN documented in this encounter [facility] Diagnosis Grand multiparity with current in second trimester- Primary with care elsewhere in second trimester 19 weeks gestation of state, incidental [facility] Diagnosis 23 weeks gestation of - Primary state, incidental Grand multiparity with current in second trimester documented [facility] this [facility]* Diagnosis 15 weeks gestation of state, incidental [facility]* Diagnosis Encounter for supervision of other normal in third trimester- Primary 27 weeks gestation of state, incidental Grand multiparity with current in third trimester Rh negative state in antepartum period Rhesus isoimmunization affecting management of mother, antepartum condition Uterine size-date discrepancy, third trimester documented [facility] this [facility]* Diagnosis Encounter for supervision of other normal in third trimester- Primary Anemia during in third trimester 37 weeks gestation of state, incidental Penicillin allergy Personal history of allergy to penicillin Uterine size-date discrepancy, third trimester [facility] Diagnosis Encounter for ultrasound to check growth- Primary Encounter for routine screening for malformation using ultrasonics Uterine size-date discrepancy, third trimester 37 weeks gestation of state, incidental [facility]* Diagnosis Encounter for supervision of other normal in third trimester- Primary 37 weeks gestation of state, incidental Uterine size-date discrepancy, third trimester [facility]* Diagnosis 38 weeks gestation of - Primary state, incidental [facility]* Diagnosis Encounter for supervision of other normal in third trimester- Primary Anemia during in third trimester 39 weeks gestation of state, incidental documented in this encounter [facility] for referral (narrative)* Diagnostic Procedure Only (Routine) - Authorized Specialty Diagnoses / Procedures Referred By Christiano lua Referred To Contact [facility] Diagnoses 15 weeks gestation of Procedures OBSTETRIC ULTRASOUND WHI US PREG UTERUS AFTER 1ST TRIMEST GESTATION Perla Cevallos APRN.CNP [address] [place] [address] [facility][Note 3] [address] [place] [address] Referral ID Status Reason Start Date Expiration Date Visits Requested Visits Authorized [id number] Authorized Auto-Generat ed Referral 06/08/2023 06/07/2024 1 1 [facility] for visit Narrative* Diagnostic Procedure Only (Routine) - Closed Specialty Diagnoses / Procedures Referred By Christiano lua Referred To Contact [facility] Diagnoses 15 weeks gestation of Procedures OBSTETRIC ULTRASOUND WHI US PREG UTERUS AFTER 1ST TRIMEST GESTATION Perla Cevallos APRN.CNP [address] [place] [address] [facility][Note 3] [place] [address] Referral ID Status Reason Start Date Expiration Date V isits Requested Visits Authorized [id number] Closed Auto-Generate d Referral 06/08/2023 06/07/2024 1 1 [facility] Summary Purpose Family History No Family History [...] or prosecute any alcohol or drug abuse patient.[facility] the event this information is protected by the Federal Confidentiality of Alcohol and Drug Abuse Patient Records regulations: The Federal rules restrict any use of the information to criminally investigate or prosecute any alcohol or drug abuse patient.[facility] the event this information is protected by the Federal Confidentiality of Alcohol and Drug Abuse Patient Records regulations: The Federal rules restrict any use of the information to criminally investigate or prosecute any alcohol or drug abuse patient.[facility] the event this information is protected by the Federal Confidentiality of Alcohol and Drug Abuse Patient Records regulations: The Federal rules restrict any use of the information to criminally investigate or prosecute any alcohol or drug abuse patient.[facility] the event this information is protected by the Federal Confidentiality of Alcohol and Drug Abuse Patient Records regulations: The Federal rules restrict any use of the information to criminally investigate or prosecute any alcohol or drug abuse patient.[facility] GeneralIn the event this information is protected by the Federal Confidentiality of Alcohol and Drug Abuse Patient Records regulations: The Federal rules restrict any use of the information to criminally investigate or prosecute any alcohol or drug abuse patient.[facility] GeneralIn the event this information is protected by the Federal Confidentiality of Alcohol and Drug Abuse Patient Records regulations: The Federal rules restrict any use of the information to criminally investigate or prosecute any alcohol or drug abuse patient.[facility] GeneralIn the event this information is protected by the Federal Confidentiality of Alcohol and Drug Abuse Patient Records regulations: The Federal rules restrict any use of the information to criminally investigate or prosecute any alcohol or drug abuse patient.[facility] GeneralIn the event this information is protected by the Federal Confidentiality of Alcohol and Drug Abuse Patient Records regulations: The Federal rules restrict any use of the information to criminally investigate or prosecute any alcohol or drug abuse patient.[facility] GeneralIn the event this information is protected by the Federal Confidentiality of Alcohol and Drug Abuse Patient Records regulations: The Federal rules restrict any use of the information to criminally investigate or prosecute any alcohol or drug abuse patient.[facility] GeneralIn the event this information is protected by the Federal Confidentiality of Alcohol and Drug Abuse Patient Records regulations: The Federal rules restrict any use of the information to criminally investigate or prosecute any alcohol or drug abuse patient.[facility] GeneralIn the event this information is protected by the Federal Confidentiality of Alcohol and Drug Abuse Patient Records regulations: The Federal rules restrict any use of the information to criminally investigate or prosecute any alcohol or drug abuse patient.[facility] Reason for Visit (unrecogniz ed section and content) Reason Comments Care Reason Onset Date Comments Care 07/07/2023 Reason Onset Date Comments Care 08/05/2023 Reason Onset Date Comments Care 09/03/2023 Reason Onset Date Comments Care 11/06/2023 Reason Comments US Specialty Diagnoses / Procedures Referred By Christiano t Referred To Contact [facility] Diagnoses 34 weeks gestation of Uterine size-date discrepancy, third trimester Procedures OBSTETRIC ULTRASOUND WHI US PREG UTERUS AFTER 1ST TRIMEST GESTATION Reese Laws MD [address] [place] [address] [facility][Note 3] [address] [place] [address] Referral ID Status Reason Start Date Expiration Date V isits Requested Visits Authorized [id number] Closed Auto-Generate d Referral 10/22/2023 10/21/2024 1 [...] BE BASED ON THE PRIMARY CLINICAL RECORDS. [facility]. [facility]. provides no warranty or guarantee of the accuracy or completeness of information in this document.
[2023-11-28] MEDS: Lactated Ringers 1,000 ML 50 ML IV (17:50)
[2023-11-28 18:08] LABS: Absolute Lymphocyte Count 1.53 X10^3/uL (0.83-4.51); Absolute Neutrophil Count 4.8 X10^3/uL (2.0-7.7); Basophil# 0.04 X10^3/uL; Basophil% 0.6 % (0-1); Eosinophil# 0.12 X10^3/uL; Eosinophils% 1.7 % (0-5); Hematocrit 36.6 % (37-47); Hemoglobin 12.3 g/dL (12.0-15.0); Lymphocyte # 1.53 X10^3/ul (0.83-4.51); Lymphocyte % 21.9 % (19-41); Mean Corp Hgb Conc 33.6 g/dL (32-36); Mean Corpuscular Hgb 31.4 pg (27.0-32.0); Mean Corpuscular Volume 93.4 fL (81-99); Mean Platelet Vol. 9.5 fl (6.2-12.0); Monocyte# 0.49 X10^3/uL; NRBC Flagged by Analyzer 0 % (0-5); Neutrophil # 4.78 X10^3/uL (2.7-7.7); Neutrophil % 68.4 % (47-70); Platelet Count 241 K/mm3 (150-450); RBC Distribution Width CV 14.1 % (11.6-14.6); RBC Distribution Width SD 47.4 fl (35.1-43.9); Red Blood Count 3.92 M/mm3 (4.2-5.4)
[2023-11-28 19:18] LABS: Syphilis Antibodies Non-reactive
[2023-11-28] MEDS: Oxytocin 15 Units/NS 250ml 15 UNITS/250 ML IV.SOLN 2 UNITS IV (19:28)
--- NOTE | 2023-11-28 21:29 | PCM.HP.OB ---
HPI - General General Date of Admission: 11/28/23 Date of Service: 11/28/23 HPI Narrative ARIANE BAÑUELOS, is a 33 F who presents with ctxs. Maternal Data Information Final SERENA: 11/27/23 Gestational age: 40&1 PFSH PFS Medical History Family history of hearing loss at age younger than 7 years Home Medications vits,calcium no.78-iron fumarate-folic acid 29 mg-1 mg tablet 1 tab PO DAILY 06/25/19 [History Last Taken 05/14/22 08:00] ferrous sulfate 134 mg (27 mg iron) tablet 1 mg PO QWEEK see provider; 3x/week 05/17/22 [History Last Taken 11/27/23] Allergy/AdvReac Type Severity Reaction Status Date / Time penicillin G Allergy Hives Verified 05/17/22 21:42 sulfamethoxazole Allergy Hives Verified 05/17/22 21:42 [From ] trimethoprim [From ] Allergy Hives Verified 05/17/22 21:42 Surgical History History of surgery Social History Smoking Status: Never smoker History Elective abortions Hx Para 7 Spontaneous abortions Hx # Term Pregnancies Ectopic pregnancies Hx # Pregnancies Multiple births # of living children NST FHR Rate Baby A Baseline: 145 Variability:: Moderate Accelerations:: 15 x 15 Decelerations:: None Uterine Activity:: Q3 minutes Vital Signs Vital Signs Vital Signs: 11/28/23 17:05 11/28/23 17:05 11/28/23 17:07 Temperature Temperature Source Pulse Rate 117 H Respiratory Rate Blood Pressure 131/74 H BP Systolic 131 BP Diastolic 74 Pulse Ox 98 11/28/23 17:07 11/28/23 17:10 11/28/23 17:10 Temperature Temperature Source Pulse Rate 96 93 Respiratory Rate Blood Pressure BP Systolic BP Diastolic Pulse Ox 98 11/28/23 18:36 11/28/23 18:36 11/28/23 18:36 Temperature 99.6 F H Temperature Source Temporal Pulse Rate Respiratory Rate 16 Blood Pressure BP Systolic BP Diastolic Pulse Ox 11/28/23 19:14 11/28/23 19:14 11/28/23 19:13 Temperature Temperature Source Pulse Rate 89 90 Respiratory Rate Blood Pressure 119/68 BP Systolic 119 BP Diastolic 68 Pulse Ox 11/28/23 19:13 11/28/23 19:14 11/28/23 19:14 Temperature Temperature Source Tympanic Pulse Rate Respiratory Rate 16 Blood Pressure BP Systolic BP Diastolic Pulse Ox 99 11/28/23 19:14 11/28/23 20:13 11/28/23 20:13 Temperature 98.9 F Temperature Source Pulse Rate 88 Respiratory Rate Blood Pressure 133/68 H BP Systolic 133 BP Diastolic 68 Pulse Ox 11/28/23 20:13 11/28/23 20:13 11/28/23 20:13 Temperature Temperature Source Tympanic Pulse Rate Respiratory Rate 16 Blood Pressure BP Systolic BP Diastolic Pulse Ox 98 11/28/23 20:13 11/28/23 21:13 11/28/23 21:13 Temperature 98.8 F Temperature Source Tympanic Pulse Rate Respiratory Rate Blood Pressure 106/61 BP Systolic 106 BP Diastolic 61 Pulse Ox 11/28/23 21:13 11/28/23 21:13 11/28/23 21:13 Temperature Temperature Source Pulse Rate 85 Respiratory Rate 16 Blood Pressure BP Systolic BP Diastolic Pulse Ox 96 11/28/23 21:13 Temperature 98.3 F Temperature Source Pulse Rate Respiratory Rate Blood Pressure BP Systolic BP Diastolic Pulse Ox Weight Weight: 148 lb Body Mass Index (BMI) 26.2 Physical Exam Const alert, oriented x3 and no apparent distress Chest inspection of chest normal GI soft to palpation, non-tender and non-distended Inspection: gravid external exam normal Narrative: cvx - 5.5/80/-1, AROM clear fluid Labs Labs Labs: Blood Type O NEGATIVE Antibody Screen NEGATIVE Hct 36.6 % (37-47) L Hgb 12.3 g/dL (12.0-15.0) Obstetrics Ultrasound Syphilis Total Ab Non-reactive VZV IgG Antibody 2695 index (Immune >165) Rubella IgG Antibody Reactive (Nonreactive) Hep Bs Antigen Non-Reactive (Nonreactive) Hepatitis C Antibody Non-Reactive (Nonreactive) Hepatitis C Ab (EIA) <0.1 s/co ratio (0.0-0.9) Chlamydia DNA (ISAIAS) Negative (Negative) N.gonorrhoeae DNA (ISAIAS) Negative (Negative) HIV 1&2 Antibody Non-Reactive (Nonreactive) Glucose 1 Hr 50 gm 134 mg/dL (70-140) Group B Strep DNA POSITIVE (Negative) H Rhogam given: No Assessment & Plan (1) 40 weeks gestation of : COMMENT: @ 40&1 PLAN: Plan Admit to L&D Labor augmentation with pitocin & s/p AROM GBS negative EFW less than 4500g & patient with adequate pelvis Pain - declines epidural at this time Routine care
--- NOTE | 2023-11-28 21:35 | EX.PCM.OBRPT ---
Maternal Data Information Final SERENA: 11/27/23 Gestational age: 40&1 Vaginal Delivery Maternal Presentation Maternal Presentation: Active Labor Operative Information Date of Procedure: 11/28/23 Pre-Operative Diagnosis: Labor Post-Operative Diagnosis: Labor Surgery / Procedure Performed: Spontaneous Vaginal Delivery Type of Anesthesia: None Estimated Blood Loss: 200ml Findings Description of Procedure: head was . head gently guided to allow delivery of anterior and posterior shoulders. No excess traction placed on head. Body delivered and 3VC clamped & cut in delayed fashion. Placenta delivered with gentle traction and good uterine tone obtained. Presentation: ELIJAH Amniotic Membrane Rupture Type: Artificial Amniotic Fluid Description: Clear Placental Delivery Description: Expressed Placenta Disposition: [facility] Specimen(s) Removed: Placenta Cord Vessel Description: 3 Vessels Cord Entanglement: Around neck x 1, loose Nuchal Cord Compression: Without compression Infant A Gender: Female (1 minute): 7 (5 minute): 9 Delayed Cord Clamping: Yes Post Vaginal Delivery Medications Given After Delivery: IV Pitocin Episiotomy Description: None Laceration: None Complication Complications: None
[2023-11-28] MEDS: Oxytocin 15 Units/NS 250ml 15 UNITS/250 ML IV.SOLN 83 UNITS IV (23:09)
[2023-11-29] VITALS (11 sets, daily range): BP systolic 96–113; BP diastolic 54–64; PULSE 71–85; RESP 16; TEMP 36.4–37.3
--- NOTE | 2023-11-29 10:54 | PN.OBGYN_ITS ---
Subjective Subjective Denies complaints Objective Data Objective Data Vital Signs: Vital Signs Temp Pulse Resp BP Pulse Ox O2 Del Method 97.9 F 71 16 110/64 99 Room Air 11/29/23 07:51 11/29/23 07:51 11/29/23 07:51 11/29/23 07:51 11/28/23 21:53 11/29/23 04:30 Oxygen Delivery Method Room Air Weight: 148 lb Body Mass Index (BMI) 26.2 Intake & Output: Intake and Output for Last 24 Hours 11/27/23 11/28/23 11/30/23 23:59 23:59 00:59 Intake Total 453.71 / 453.71 250 / 250 Output Total 200 / 200 Balance 253.71 / 253.71 250 / 250 Lab / Micro Data 11/28/23 17:50 Labs: Laboratory Results - last 24 hr 11/28/23 17:50: WBC 7.0, RBC 3.92 L, Hgb 12.3, Hct 36.6 L, MCV 93.4, MCH 31.4, MCHC 33.6, RDW Std Deviation 47.4 H, RDW Coeff of Yoana 14.1, Plt Count 241, MPV 9.5, Immature Gran % (Auto) 0.400, Neut % (Auto) 68.4, Lymph % (Auto) 21.9, [place] % (Auto) 7.0, Eos % (Auto) 1.7, Baso % (Auto) 0.6, Absolute Neuts (auto) 4.8, Absolute Lymphs (auto) 1.53, Nucleated RBC % 0, Syphilis Total Ab Non-reactive, Blood Type O NEGATIVE, Antibody Screen NEGATIVE Physical Exam Const alert, oriented x3 and no apparent distress HEENT normocephalic GI soft to palpation, non-tender and non-distended GI Narrative: fundus firm, mid & below umbilicus Extremity normal to inspection and no calf tenderness Assessment & Plan (1) Vaginal delivery: COMMENT: PPD#1 PLAN: Plan Routine care Possible d/c home tonight per patient request
--- NOTE | 2023-11-29 10:55 | DCINST_ITS ---
Discharge Instructions Diet Discharge Diet: No restrictions Activity Discharge Activity: May Shower May resume sexual activity in: 6 weeks Weight Bearing Status: Weight bearing as tolerated Dressing / Incision Call your doctor if you observe: Fever of 101 or Higher, Coldness, Increased Pain, Change in Color, Inability to urinate, Inability to have a bowel movement, Using more than 1 pad per hour, Shortness of breath, Dizziness, Fainting spells, Chest pain, Increased palpitations (irregular heartbeat), Calf discomfort and Uncontrolled pain Follow Up Care Please Follow Up With: Bill Rodríguez MD When: Follow up in 2 and 6 weeks for visits. Test Results: Test results from this visit will be discussed in further detail at your follow- up appointment, if applicable. Discharge Plan Admission Admit Date/Time: 11/28/23 17:28 Primary Reason for Your Visit: Vaginal delivery Attending Provider: Bill Rodríguez Primary Care Provider: Francisca Hinds Primary Discharge Orders/Prescriptions Prescriptions: New acetaminophen 500 mg Tablet 1,000 mg PO Q6H PRN PRN (Reason: Pain 1-10 Or Fever) Qty: 0 0RF ibuprofen 600 mg Tablet 600 mg PO Q6H PRN PRN (Reason: Pain Score 1-3) Qty: 0 0RF Continued vit,[id number] 1 TABLET tablet 1 tab PO DAILY Discontinued ferrous sulfate 134 mg (27 mg iron) Tablet 1 mg PO QWEEK Referrals / Follow Up: Care PhysicianFrancisca Primary [Primary Care Provider] - Disposition Disposition (needs filled in before D/C Order can be placed): Home, Self Care
--- NOTE | 2023-11-29 18:12 | NURSING ---
patient declined fundal assessment (she is fully clothed wearing a long skirt and top) we discussed the purpose of fundal assessments and normal and abnormal bleeding. She currently has very minimal bleeding and will notify RN if abnormal bleeding occurs.
[2023-11-29] MEDS: Ibuprofen 600 MG Tablet PO (18:35)
== END 2023-11-29 23:10 | disposition home or self-care (01) | DRG 807 ==
LOC: WPOUT 17:29 → WP 17:29
PROVIDERS: Admitting Provider Obstetrics & Gynecology; Visit Provider Obstetrics & Gynecology
DX: O26.23 Pregnancy care for patient with recurrent pregnancy loss, third trimester (principal); Z37.0 Single live birth; Z3A.40 40 weeks gestation of pregnancy
CPT/HCPCS: 59025; 59050; 85025; 86780; 86850; 86900; 86901; 99221; J7120; G0378

== ENCOUNTER 2025-06-26 15:43 | Inpatient (IN) | payer OTHER, SELFPAY ==
[2025-06-26] VITALS (41 sets, daily range): BP systolic 102–131; BP diastolic 59–73; PULSE 80–108; RESP 16; TEMP 36.4–37; O2SAT 98–100; BMI 26.2
[2025-06-26 16:42] LABS: Syphilis Antibodies Nonreactive (Nonreactive)
[2025-06-26 16:56] LABS: Hematocrit 32.6 % (37-47); Hemoglobin 11.4 g/dL (12.0-15.0); Immature Granulocytes Count 0.020 X10^3/uL (0.0-0.0); Mean Corp Hgb Conc 35.0 g/dL (32-36); Mean Corpuscular Volume 88.1 fL (81-99); Mean Platelet Vol. 9.8 fl (6.2-12.0); NRBC Flagged by Analyzer 0 % (0-5); Platelet Count 219 K/mm3 (150-450); RBC Distribution Width CV 13.9 % (11.6-14.6); RBC Distribution Width SD 44.3 fl (35.1-43.9); Red Blood Count 3.70 M/mm3 (4.2-5.4); White Blood Count 5.4 K/mm3 (4.4-11.0)
--- NOTE | 2025-06-26 18:14 | HP.PCM.OB_ITS ---
HPI - General General Date of Admission: 06/26/25 HPI Narrative ARIANE BAÑUELOS, is a 34 F who presents [id number] presents at 39w6d with SERENA:06/27/25. Presented to the office and found to be 5cm dilation. Membranes swept and sent to L&D for admission. Irregular contractions. [facility] Medical History (Updated 06/26/25 @ 18:44 by Elvira Velasco CNM) Thin meconium stained amniotic fluid Family history of hearing loss at age younger than 7 years Home Medications ?Medication ?Instructions ?Recorded ?Last Taken ?Type vits,calcium no.78-iron 1 tab PO DAILY pregna ncy 06/25/19 05/14/22 08:00 History fumarate-folic acid 29 mg-1 mg tablet acetaminophen 500 mg tablet 1,000 mg (2 x 500 mg) PO Q 6H PRN 11/29/23 Unknown Rx PRN Pain 1-10 Or Fever #0 tabs ibuprofen 600 mg tablet 600 mg PO Q6H PRN PRN Pain S core 11/29/23 Unknown Rx 1-3 #0 tabs Allergy/AdvReac Type Severity Reaction Status Date / Time sulfamethoxazole (From Allergy Hives Verified 06/26/25 16:29 Septra) trimethoprim (From ) Allergy Hives Verified 06/26/25 16:29 Surgical History History of surgery Social History Smoking Status: Never smoker History Elective abortions Hx Para 8 Spontaneous abortions Hx # Term Pregnancies Ectopic pregnancies Hx # Pregnancies Multiple births # of living children NST FHR Rate Baby A Baseline: 140 Variability:: Moderate Accelerations:: 15 x 15 Decelerations:: Variable FHR Category:: Category II Uterine Activity:: Irregular, mild ROS Constitutional Constitutional: Reports systems reviewed and no addt'l complaints, except as documented; Denies headache(s) Eyes Eyes: Denies acute decrease in peripheral vision, blurry vision or change in vision ENT HEENT: Reports systems reviewed and no addt'l complaints, except as documented Cardiovascular Cardiovascular: Denies chest pain or dizziness Respiratory/Chest Respiratory/Chest: Denies cough, dyspnea, dyspnea on exertion, shortness of breath at rest or shortness of breath with exertion Gastrointestinal Gastrointestinal: Denies abdominal pain, diarrhea, nausea or vomiting Genitourinary Genitourinary: Denies abdominal discomfort Musculoskeletal Musculoskeletal: Denies limited range of motion Integumentary Integumentary: Reports systems reviewed and no addt'l complaints, except as documented Neurologic Neurologic: Reports systems reviewed and no addt'l complaints, except as documented Psychiatric Psychiatric: Reports systems reviewed and no addt'l complaints, except as documented Endocrine Endocrinology: Reports systems reviewed and no addt'l complaints, except as documented Hematologic/Lymphatic Hematologic/Lymphatic: Reports systems reviewed and no addt'l complaints, except as documented Allergic/Immunologic Allergic/Immunologic: Reports systems reviewed and no addt'l complaints, except as documented Vital Signs Vital Signs Vital Signs: 06/26/25 15:54 06/26/25 15:54 06/26/25 15:54 Temperature Temperature Source Temporal Pulse Rate 95 Respiratory Rate Blood Pressure 116/73 BP Systolic 116 BP Diastolic 73 Pulse Ox 06/26/25 15:54 06/26/25 15:54 06/26/25 15:55 Temperature 98.6 F Temperature Source Pulse Rate 100 Respiratory Rate 16 Blood Pressure BP Systolic BP Diastolic Pulse Ox 06/26/25 15:55 06/26/25 17:08 06/26/25 17:08 Temperature Temperature Source Pulse Rate 83 Respiratory Rate Blood Pressure 117/68 BP Systolic 117 BP Diastolic 68 Pulse Ox 99 06/26/25 17:08 06/26/25 17:08 06/26/25 17:08 Temperature 98.2 F Temperature Source Temporal Pulse Rate Respiratory Rate 16 Blood Pressure BP Systolic BP Diastolic Pulse Ox 06/26/25 17:56 06/26/25 17:56 06/26/25 17:56 Temperature Temperature Source Temporal Pulse Rate 96 Respiratory Rate Blood Pressure 127/70 H BP Systolic 127 BP Diastolic 70 Pulse Ox 06/26/25 17:56 06/26/25 17:56 06/26/25 17:57 Temperature 97.6 F L Temperature Source Pulse Rate 90 Respiratory Rate 16 Blood Pressure BP Systolic BP Diastolic Pulse Ox 06/26/25 17:57 Temperature Temperature Source Pulse Rate Respiratory Rate Blood Pressure BP Systolic BP Diastolic Pulse Ox 100 Weight Weight: 148 lb 4 oz Body Mass Index (BMI) 26.2 Physical Exam Const alert and oriented x3 General Appearance: cooperative Orientation / Consciousness: awake, oriented to person, oriented to place and oriented to time Exam Limitations: no limitations HEENT normocephalic Head and Scalp: normal to inspection, normocephalic and atraumatic Face and Sinus: normal facial exam Eyes General Eye: normal appearance of both eyes Neck full ROM Chest Chest: symmetrical chest wall rise Resp normal respiratory effort and normal air movement Auscultation: clear to auscultation bilaterally Cardio regular rate, regular rhythm, S1 normal heart sound, S2 normal heart sound, no murmurs, no rub, no gallops and no clicks GI normal to inspection, nondistended, normoactive bowel sounds and non-tender appearance of the vagina normal Bladder / Kidney Exam: no CVA tenderness Manual OB Exam: estimated gestational size appropriate, presentation cephalic, dilated 6, effaced 60, station -1 and other AROM large amount of meconium stained fluid Back/Spine normal ROM Extremity normal to inspection and full ROM Skin no rashes or lesions noted Neuro oriented x3, CN's II-XII intact bilaterally and moves all extremities Sensorium / Orientation: awake, alert and oriented to person Motor Exam: clonus absent Deep Tendon Reflexes: Rt Patellar (L4): 2+ and Lt Patellar (L4): 2+ Labs Labs Labs: Blood Type O NEGATIVE Antibody Screen NEGATIVE Hct, (37-47) 32.6 % L Hgb, (12.0-15.0) 11.4 g/dL L Obstetrics Ultrasound Syphilis Total Ab, (Nonreactive) Nonreactive VZV IgG Antibody, (Immune >165) 2695 index Rubella IgG Antibody, (Nonreactive) Reactive Hep Bs Antigen, (Nonreactive) Non-Reactive Hepatitis C Antibody, (Nonreactive) Non-Reactive Hepatitis C Ab (EIA), (0.0-0.9) <0.1 s/co ratio Chlamydia DNA (ISAIAS), (Negative) Negative N.gonorrhoeae DNA (ISAIAS), (Negative) Negative HIV 1&2 Antibody, (Nonreactive) Non-Reactive Glucose 1 Hr 50 gm, (70-140) 134 mg/dL Group B Strep DNA, (Negative) POSITIVE H Rhogam given: No Assessment & Plan (1) 39 weeks gestation of : (2) Grand multipara in labor: (3) Anemia affecting : (4) Short interval between pregnancies affecting , antepartum: (5) Rh negative state in antepartum period: (6) Abnormal ultrasound: COMMENT: Subamniotic cyst-unknown clinical significance, follow up with manager of revenue PLAN: Plan 1) Admit to labor and delivery 2) Routine labs 3) Continuous EFM 4) Pain management upon request 5) Dr. Loya collaborative physician and notified of patient status, above assessment, and plan.
[2025-06-26] MEDS: 0.9% Saline Lock 10 ML Syringe IV (20:08)
--- NOTE | 2025-06-26 20:55 | PLAC_PTH ---
PATIENT: ARIANE BAÑUELOS LOC: [facility] U#:[id number] AGE/SX: 34/F ROOM: WP008 RE06/26/[address]: Elvira Velasco CNM : 1990 BED: 1 DIS: 06/27/2025 SPEC #: [id number] RECD: 06/27/25 00:29 STATUS: EILEEN RERoselia #: [id number] FABIO: 06/26/25 20:[address]: Elvira Velasco DEPT: SURGICAL PATHOLOGY RECD BY: Lesa Sandoval ENTERED: 06/27/25 08:32 SP TYPE: PLACENTA OTHR DR: No Primary Care Phys Tissues: Placenta, NOS Procedures: Surgery Specimen Level V HEADER OPERATION: Vaginal delivery PRE-OP DIAGNOSIS: Abnormality TISSUE SUBMITTED: A- Placenta MICROSCOPIC DIAGNOSIS A. Placenta, gestation: 39 weeks / 6 days, vaginal delivery: * Mature third trimester placenta (446 grams, formalin fixed weight) with subchorionic fibrin (<25%) and intervillous thrombus * Three vessel umbilical cord with false knots and focal acute funisitis * membranes with occasional pigment laden macrophages and without active inflammation MICROSCOPIC DESCRIPTION Slides are reviewed. GROSS DESCRIPTION A. Received in formalin labeled with the patient's name and date of is a 446 g, 17.9 x 15.9 x 2.8 cm irregular placental disc. The membranes are chan-green and translucent with 2 pale, adherent blood clots (4.5 x 1.5 cm in greatest dimension) and inserting marginally. The attached, trivascular and tethered umbilical cord is hypocoiled with few false knots and measures 47.6 cm in length by 0.8-1.1 cm in diameter, inserting marginally. The surface is blue-green and nodular with subchorionic fibrin (<25%). The maternal surface is pink-chan red with a focally torn and frayed appearing with a 7.0 x 4.5 cm adherent blood clot however, no definitive areas of abruption or defects are grossly identified; there is patchy fibrin (<10%) and the maternal surface appears complete. Sectioning reveals red, spongy parenchyma with focal hemorrhage/fibrin (<10%) and a 1.1 cm apparent cystic space. Otr Owner Operator sections are submitted as follows: A1: Membrane rollA2: Umbilical cordA3: Placenta with surface fibrin and apparent cystic spaceA4: Placenta with maternal surface fibrin and apparent cystic space PR 06/27/2025 CPT:17022
[2025-06-26] MEDS: Oxytocin 15 Units/NS 250ml 15 UNITS/250 ML IV.SOLN 334 UNITS IV (21:00)
[2025-06-26] MEDS: Oxytocin 15 Units/NS 250ml 15 UNITS/250 ML IV.SOLN 83 UNITS IV (21:32)
[2025-06-27 00:34] LABS: Pathology Specimen OB SEE PATHOLOGY REPORT
[2025-06-27 03:09] VITALS: BP 109/71; PULSE 82; RESP 16; TEMP 36.6; O2SAT 98
[2025-06-27 06:21] LABS: Hematocrit 30.5 % (37-47); Hemoglobin 10.5 g/dL (12.0-15.0); Immature Granulocytes Count 0.030 X10^3/uL (0.0-0.0); Mean Corp Hgb Conc 34.4 g/dL (32-36); Mean Corpuscular Volume 91.0 fL (81-99); Mean Platelet Vol. 9.5 fl (6.2-12.0); NRBC Flagged by Analyzer 0 % (0-5); Platelet Count 191 K/mm3 (150-450); RBC Distribution Width CV 13.8 % (11.6-14.6); RBC Distribution Width SD 46.0 fl (35.1-43.9); Red Blood Count 3.35 M/mm3 (4.2-5.4); White Blood Count 7.9 K/mm3 (4.4-11.0)
--- NOTE | 2025-06-27 08:41 | PCM.PN.OB ---
Subjective Subjective Denies complaints Objective Data Objective Data Vital Signs: Vital Signs Temp Pulse Resp BP Pulse Ox O2 Del Method 97.8 F 82 16 109/71 98 Room Air 06/27/25 03:09 06/27/25 03:09 06/27/25 03:09 06/27/25 03:09 06/27/25 03:09 06/27/25 03:09 Oxygen Delivery Method Room Air Weight: 148 lb 4 oz Body Mass Index (BMI) 26.2 Intake & Output: Intake and Output for Last 24 Hours 06/25/25 06/26/25 06/27/25 23:59 23:59 23:59 Intake Total 167 / 167 250 / 250 Output Total 300 / 300 Balance -133 / -133 250 / 250 Lab / Micro Data 06/27/25 06:12 Labs: Laboratory Results - last 24 hr 06/26/25 16:05: WBC 5.4, RBC 3.70 L, Hgb 11.4 L, Hct 32.6 L, MCV 88.1, MCH 30.8, MCHC 35.0, RDW Std Deviation 44.3 H, RDW Coeff of Yoana 13.9, Plt Count 219, MPV 9.8, Immature Gran % (Auto) 0.400, Neut % (Auto) 62.8, Lymph % (Auto) 27.1, [place] % (Auto) 6.7, Eos % (Auto) 2.4, Baso % (Auto) 0.6, Absolute Neuts (auto) 3.4, Absolute Lymphs (auto) 1.46, Nucleated RBC % 0, Syphilis Total Ab Nonreactive, Blood Type O NEGATIVE, Antibody Screen NEGATIVE 06/27/25 06:12: WBC 7.9, RBC 3.35 L, Hgb 10.5 L, Hct 30.5 L, MCV 91.0, MCH 31.3, MCHC 34.4, RDW Std Deviation 46.0 H, RDW Coeff of Yoana 13.8, Plt Count 191, MPV 9.5, Immature Gran % (Auto) 0.400, Neut % (Auto) 74.7 H, Lymph % (Auto) 16.5 L, [place] % (Auto) 6.7, Eos % (Auto) 1.3, Baso % (Auto) 0.4, Absolute Neuts (auto) 5.9, Absolute Lymphs (auto) 1.31, Nucleated RBC % 0 Physical Exam Const alert, oriented x3 and no apparent distress HEENT normocephalic GI soft to palpation, non-tender and non-distended GI Narrative: fundus firm, mid & below umbilicus Extremity normal to inspection and no calf tenderness Assessment & Plan (1) Vaginal delivery: COMMENT: PPD#1 PLAN: Plan Routine PP care
[2025-06-27 08:45] VITALS: BP 108/61; PULSE 88; RESP 14; TEMP 36.4; O2SAT 98
[2025-06-27] MEDS: Prenatal Vits Tablet 1 TABLET PO (09:40)
[2025-06-27 12:00] VITALS: BP 92/66; PULSE 67; RESP 14; TEMP 36.3; O2SAT 97
[2025-06-27 14:00] VITALS: BP 100/67; PULSE 75; RESP 14; TEMP 36.3; O2SAT 99
--- NOTE | 2025-06-27 16:58 | DCINST_ITS ---
Discharge Instructions DC O2, CPAP, BIPAP needs Home O2 Discharge instructions: No Dressing / Incision Discharge Activity: May Shower May resume sexual activity in: 6 weeks Weight Bearing Status: Weight bearing as tolerated Dressing / Incision Call your doctor if you observe: Fever of 101 or Higher, Coldness, Increased Pain, Change in Color, Inability to urinate, Inability to have a bowel movement, Using more than 1 pad per hour, Shortness of breath, Dizziness, Fainting spells, Chest pain, Increased palpitations (irregular heartbeat), Calf discomfort and Uncontrolled pain Follow Up Care Please Follow Up With: Bill Rodríguez MD When: Follow up in 2 and 6 weeks for visits. Test Results: Test results from this visit will be discussed in further detail at your follow- up appointment, if applicable. Discharge Plan Admission Admit Date/Time: 06/26/25 15:43 Primary Reason for Your Visit: Vaginal delivery Attending Provider: Elvira Velasco Primary Care Provider: Care Physician,No Primary Discharge Orders/Prescriptions Prescriptions: No Action vit,crissy [id number]-rkcvt 1 TABLET tablet 1 tab PO DAILY acetaminophen 500 mg Tablet 1,000 mg PO Q6H PRN PRN (Reason: Pain 1-10 Or Fever) Qty: 0 0RF ibuprofen 600 mg Tablet 600 mg PO Q6H PRN PRN (Reason: Pain Score 1-3) Qty: 0 0RF Referrals / Follow Up: Care Physician,No Primary [Primary Care Provider, Medical] Disposition Disposition (needs filled in before D/C Order can be placed): Home, Self Care
[2025-06-27 21:02] VITALS: BP 96/63; PULSE 79; RESP 16; TEMP 36.6; O2SAT 97
--- NOTE | 2025-07-08 13:18 | OB.VAGDELI_ITS ---
Assessment & Plan (1) Lactating mother: Maternal Data Information SERENA Calculator Estimated Delivery Date Method Current WG Current Estimate 06/27/25 Manual 41w 4d 39w6d at sd liver Vaginal Delivery Maternal Presentation Maternal Presentation: Active Labor Vaginal Delivery Information Procedure Performed: Spontaneous Vaginal Delivery Surgeon/Practitioner: Elvira Velasco Date of Procedure: 06/26/25 Pre-Procedure Diagnosis: Active labor at term Post-Procedure Diagnosis: , meconium stained fluid Type of anesthesia: None Estimated Blood Loss: 300 ml Time of Delivery: 20:55 Findings Description of procedure: Progressed to complete with urge to push. Nothing for pain management. of viable male infant over intact perineum. APGARS 9,9 respectively. Infant head delivered with body immediately forthcoming. CAN x3, loose, delivered through. Placed on maternal abdomen, strong cry. Mouth and nares suctioned for secretions. Pitocin started for active 3rd stage management. Cord doubly clamped and cut by FOB after pulsations ceased, delayed cord clamping. Placenta delivered intact via givens, 3 vessel cord intact. Perineum inspected and revealed intact. Fundus firm and hemostasis achieved. EBL 300ml. Vaginal sweep completed by me, sponge and instrument correct. Mom and baby stable, planning to breastfeed. Family bonding well. notified of delivery. Presentation: Vertex Amniotic Membrane Rupture Type: Artificial Amniotic Fluid Description: Lightly stained meconium Placental Delivery Description: Spontaneous Placenta Disposition: [facility] Specimen collected: No Cord Vessel Description: 3 Vessels Cord Entanglement: Other (around the neck x3, delivered through) Nuchal Cord Compression: Without compression Infant A Gender: Male (1 minute): 9 (5 minute): 9 Delayed Cord Clamping: Yes Psychiatric Rn assistant purchasing manager: No Post Vaginal Deli Medications given after delivery: IV Pitocin Episiotomy Description: None Laceration: None Complication Complications: No
== END 2025-06-27 21:53 | disposition home or self-care (01) | DRG 807 ==
PROVIDERS: Admitting Provider Advanced Practice Midwife; Referring Provider Advanced Practice Midwife; Visit Provider Advanced Practice Midwife
DX: O76 Abnormality in fetal heart rate and rhythm complicating labor and delivery (principal); Z37.0 Single live birth; O26.893 Other specified pregnancy related conditions, third trimester; O77.0 Labor and delivery complicated by meconium in amniotic fluid; O99.02 Anemia complicating childbirth; O69.81X0 Labor and delivery complicated by cord around neck, without compression, not applicable or unspecified; Z67.91 Unspecified blood type, Rh negative; Z3A.39 39 weeks gestation of pregnancy
CPT/HCPCS: 59025; 59050; 85025; 86780; 86850; 86900; 86901; 88307; 99221; A4216; G0378